=== PATIENT | female | born 1940 | race Caucasian/White ===

== ENCOUNTER → 2020-12-05 11:38 | Outpatient (BNVA) | payer MEDICARE, OTHER, SELFPAY | PROVIDERS: Referring Provider Nurse Practitioner Family; Visit Provider Specialist | DX: M17.0 Bilateral primary osteoarthritis of knee (principal) | CPT/HCPCS: 73560; 73565 ==

== ENCOUNTER 2021-02-03 09:01 | Outpatient (CLI) | payer MEDICARE, OTHER, SELFPAY ==
--- NOTE | 2021-02-03 09:30 | USCV_ITS ---
Yesica Booth Age: 80 Gender: F : 1940 Exam Date: 02/03/2021 09:44 Ordering Phys: Niecy Man MD ([email or web address]) Technologist: Shalonda Nicole Exam Location: [facility] [place] Indication: unspecified atrial fibrillation BP: 135 / 74 HR: 69 Rhythm: Sinus Technical Quality: Adequate MEASUREMENTS (Male / Female) Normal Values 2D ECHO LV Diastolic Diameter PLAX 4.5 cm 4.2 - 5.9 / 3.9 - 5.3 cm LV Systolic Diameter PLAX 2.8 cm LV Chamber Size 4.3 cm IVS Diastolic Thickness 1.4 cm 0.6 - 1.0 / 0.6 - 0.9 cm IVS Systolic Thickness 1.8 cm LVPW Diastolic Thickness 1.7 cm 0.6 - 1.0 / 0.6 - 0.9 cm LVPW Systolic Thickness 2.0 cm RV Chamber Size 3.7 cm LVOT Diameter 2.1 cm LV Ejection Fraction 2D Teich 67.7 % LV Ejection Fraction MOD 2C 30.8 % LV Ejection Fraction 2C AL 29.0 % LA Diameter 4.4 cm LA Width 3.0 cm LA Height 4.5 cm RA Width 4.1 cm RA Height 5.2 cm Aorta at Sinotubular Diameter 3.1 cm M-MODE LV Diastolic Diameter MM 5.1 cm 4.2 - 5.9 / 3.9 - 5.3 cm LV Systolic Diameter MM 3.9 cm LV Ejection Fraction MM Teich 47.7 % IVS Diastolic Thickness MM 1.2 cm 0.6 - 1.0 / 0.6 - 0.9 cm IVS Systolic Thickness MM 1.5 cm LVPW Diastolic Thickness MM 1.3 cm 0.6 - 1.0 / 0.6 - 0.9 cm LVPW Systolic Thickness MM 1.3 cm RV Diastolic Diameter MM 2.8 cm Aortic Annulus Diameter 2.8 cm LA Ao Ratio MM 1.9 MV E Point Septal Separation 0.7 cm DOPPLER AV Peak Velocity 267.3 cm/s LVOT Peak Velocity 79.0 cm/s AV Area Cont Eq vti 0.9 cm squared AV Area Cont Eq pk 1.0 cm squared MV Area PHT 5.0 cm squared Mitral E to A Ratio 0.8 MV E' Velocity 64.5 cm/s Mitral E to MV E' Ratio 19.8 Mitral E to LV E' Lateral Ratio 21.6 Mitral E to LV E' Septal Ratio 18.6 TR Peak Velocity 329.9 cm/s TR Peak Gradient 43.5 mmHg TR Mean Velocity 225.3 cm/s TR Mean Gradient 23.7 mmHg TR Velocity Time Integral 92.0 cm TV Peak E Velocity 69.0 cm/s Right Atrial Pressure 3.0 mmHg Pulmonary Artery Systolic Pressu 46.5 mmHg PV Peak Velocity 99.0 cm/s RV Acceleration Time 0.2 s RV Ejection Time 0.4 s RV AcT/ET 0.4 FINDINGS Left Ventricle Normal left ventricular cavity size and systolic function. Increased left ventricular wall thickness. Moderate left ventricular hypertrophy. Left ventricular ejection fraction is estimated at 55 %. Grade II diastolic dysfunction, moderately elevated filling pressures. Abnormal septal motion consistent with conduction abnormality. Right Ventricle Normal right ventricular size and systolic function. Right ventricular systolic pressure 47 mmHg. Right Atrium Normal right atrial size. Left Atrium Mildly increased left atrial size. Mitral Valve Moderate mitral annular calcification. Mildly thickened mitral valve. No mitral valve stenosis. Trace mitral valve regurgitation. Aortic Valve Aortic valve not well visualized. Thickened and calcified aortic valve. Probably mild aortic valve stenosis, peak velocity 2.5 m/s, peak gradient 25 mmHg, mean gradient 17.3 mmHg, DAVID 0.93 cm squared. No aortic valve regurgitation. Tricuspid Valve Structurally normal tricuspid valve. No tricuspid valve stenosis. Trace tricuspid valve regurgitation. Pulmonic Valve Pulmonic valve not well visualized. Trace pulmonary valve regurgitation. Pericardium No pericardial effusion. Aorta Normal size aortic root and proximal ascending aorta. Normal- sized inferior vena cava with normal respiratory variation. CONCLUSIONS 1. Normal left ventricular cavity size and systolic function. Increased left ventricular wall thickness. Moderate left ventricular hypertrophy. Left ventricular ejection fraction is estimated at 55 %. Grade II diastolic dysfunction, moderately elevated filling pressures. 2. Normal right ventricular size and systolic function. 3. Moderate pulmonary hypertension with pulmonary pressure estimated at 47 mmHg. 4. Probably mild aortic valve stenosis, peak velocity 2.5 m/s, peak gradient 25 mmHg, mean gradient 17.3 mmHg, DAVID 0.93 cm squared. 5. No prior similar studies to compare. Niecy Man MD (Electronically Signed) Final Date: 06 February 2021 13:13 S
== END 2021-02-03 09:02 | disposition home or self-care (01) ==
LOC: US 09:04
PROVIDERS: PCP Nurse Practitioner Family; Visit Provider Internal Medicine Cardiovascular Disease
DX: I48.91 Unspecified atrial fibrillation (principal); Z86.73 Personal history of transient ischemic attack (TIA), and cerebral infarction without residual deficits; I44.7 Left bundle-branch block, unspecified; I27.20 Pulmonary hypertension, unspecified
CPT/HCPCS: 93306

== ENCOUNTER → 2021-05-10 15:28 | Outpatient (BNVA) | payer MEDICARE, SELFPAY | PROVIDERS: PCP Nurse Practitioner Family; Visit Provider Specialist | DX: M16.11 Unilateral primary osteoarthritis, right hip (principal); R10.30 Lower abdominal pain, unspecified; R93.7 Abnormal findings on diagnostic imaging of other parts of musculoskeletal system | CPT/HCPCS: 73502 ==

== ENCOUNTER 2021-06-15 15:35 | Outpatient (CLI) | payer MEDICARE, SELFPAY ==
--- NOTE | 2021-06-15 16:00 | CT_ITS ---
WS: [id number] NONCONTRAST CT OF THE RIGHT HIP TECHNIQUE: Noncontrast CT right hip with coronal and sagittal reformatted images. CLINICAL INFORMATION: M25.551 - Pain in right hip COMPARISON: None. DLP: 676.[address] scans at [facility] use at least one of these dose optimization techniques: automated e xposure control; mA and/or kV adjustment per patient size (includes targeted exams where dose is matc hed to clinical indication); or iterative reconstruction. FINDINGS: Advanced osteoarthritis right hip with joint space narrowing and cgps-ah-quau articulation. Hypertrop hic osteophytosis about the acetabulum and femoral neck. Subchondral cystic change involving the femo ral head and adjacent acetabulum. No avascular necrosis. No acute fractures. Hypertrophic changes abo ut the greater trochanter. Vascular calcification. CT/CT hip RT wo con* [id number] IMPRESSION: 1. Advanced osteoarthritis right hip with bkun-ae-aloi joint space narrowing. 2. Subchondral cystic change involving the femoral head and acetabulum. Osteop hytosis about the femoral head and neck. Hypertrophic spurring about the acetab ulum. 3. Osteopenia. No acute fractures. 4. Vascular calcification.
== END 2021-06-15 15:36 | disposition home or self-care (01) ==
PROVIDERS: PCP Nurse Practitioner Family; Visit Provider Specialist
DX: M85.88 Other specified disorders of bone density and structure, other site (principal); M16.11 Unilateral primary osteoarthritis, right hip
CPT/HCPCS: 73700

== ENCOUNTER → 2021-12-14 14:10 | Outpatient (BNVA) | payer MEDICARE, SELFPAY | PROVIDERS: PCP Nurse Practitioner Family; Visit Provider Internal Medicine Cardiovascular Disease | DX: I48.91 Unspecified atrial fibrillation (principal); I10 Essential (primary) hypertension; I45.4 Nonspecific intraventricular block; I35.0 Nonrheumatic aortic (valve) stenosis; E78.5 Hyperlipidemia, unspecified; Z86.73 Personal history of transient ischemic attack (TIA), and cerebral infarction without residual deficits; Z79.01 Long term (current) use of anticoagulants | CPT/HCPCS: 99214 ==

== ENCOUNTER 2022-01-26 14:22 | Outpatient (CLI) | payer MEDICARE, SELFPAY ==
--- NOTE | 2022-01-26 14:34 | MR_ITS ---
WS: [id number] MRI BRAIN WITH HIGH-RESOLUTION IMAGING THROUGH THE INTERNAL AUDITORY CANALS WITHOUT AND WITH CONTRAST HISTORY: SENSORINEURAL HEARING Loss, bilateral COMPARISON: None available. TECHNIQUE: Multiplanar, multisequence imaging is performed through the brain. Additional 3 mm imaging performed in multiple planes through the internal auditory canal. Postcontrast imaging with 10 ml's of MultiHance. No acute intracranial hemorrhage, midline shift, edema or mass effect. Mild atrophy and moderate small vessel ischemic changes. Large remote posterior RIGHT parietal infarc t with encephalomalacia and adjacent gliosis. No acute hemorrhage. No diffusion-weighted abnormality. Ventricles and extra-axial spaces are normal. No inferior displacement of cerebellar tonsils. Clivus and pituitary gland are normal. Internal and external auditory canals: Unremarkable. Cranial nerves VII and VIII complexes: Unremarkable. No enhancement or mass. Cerebellopontine angles: Normal. Paranasal sinuses: Normal. Mastoid air cells: Normal. Calvarium and scalp: Hyperostosis frontalis interna. Distal vertebral and basilar arteries are intact. Small caliber supraclinoid carotid arteries and mid dle cerebral arteries with moderate atherosclerotic disease. M1 segments are incompletely visualized and this is probably due to atherosclerotic plaque. Dural venous sinuses are negative. MR/MR iac's wo/w con* [id number] IMPRESSION: 1. No mass or abnormal enhancement along the internal auditory canals or cereb ellopontine angles. 2. Large remote posterior RIGHT parietal infarct with gliosis and encephalomal acia. 3. Moderate small vessel ischemic disease and mild atrophy. 4. Small caliber and irregular middle cerebral arteries. Bilateral M1 segment moderate atherosclerosis.
[2022-01-26] MEDS: gadobenate dimeglumine 20 mL vial IV (16:21)
== END 2022-01-26 14:23 | disposition home or self-care (01) ==
LOC: RAD 14:24
PROVIDERS: PCP Family Medicine; Visit Provider Specialist
DX: H90.3 Sensorineural hearing loss, bilateral (principal)
CPT/HCPCS: 70553

== ENCOUNTER → 2022-02-27 13:31 | Outpatient (BNVA) | payer MEDICARE, SELFPAY | PROVIDERS: PCP Family Medicine; Visit Provider Family Medicine | DX: R41.3 Other amnesia (principal); M85.80 Other specified disorders of bone density and structure, unspecified site | CPT/HCPCS: 80053; 82306; 82607; 84443; 85025 ==

== ENCOUNTER → 2022-09-18 15:52 | Outpatient (BNVA) | payer MEDICARE, SELFPAY | PROVIDERS: PCP Family Medicine; Visit Provider Family Medicine | DX: I48.91 Unspecified atrial fibrillation (principal); I10 Essential (primary) hypertension; E78.5 Hyperlipidemia, unspecified; R41.3 Other amnesia | CPT/HCPCS: 80053; 80061; 84443; 85025 ==

== ENCOUNTER → 2023-02-05 15:11 | Outpatient (BNVA) | payer MEDICARE, SELFPAY | PROVIDERS: PCP Family Medicine; Visit Provider Family Medicine | DX: M79.10 Myalgia, unspecified site (principal) | CPT/HCPCS: 80053; 82306; 83735; 85025 ==

== ENCOUNTER 2023-03-01 10:44 | Outpatient (CLI) | payer MEDICARE, SELFPAY ==
--- NOTE | 2023-03-01 10:53 | XR_ITS ---
WS: [id number] Right hip, AP and frog-leg views, 03/01/2023 Clinical Data: right hip pain Comparison: Pelvis and right hip, 05/10/2021 Findings: There is severe osteoarthritic change of the right hip with narrowing, sclerosis, cyst formation and loss of normal spherical shape of the right femoral head. There are no fractures or dislocations. The right SI joint and pubic symphysis are normal. The soft t issues are unremarkable. Impression: Severe osteoarthritis of the right hip. Tonnis classification: grade 3: large cysts in femoral head/acetabulum or joint space obliteration/se jaison narrowing or severe femoral head deformity vs AVN
== END 2023-03-01 10:45 | disposition home or self-care (01) ==
LOC: RAD 10:47
PROVIDERS: PCP Family Medicine; Visit Provider Family Medicine
DX: M16.11 Unilateral primary osteoarthritis, right hip (principal)
CPT/HCPCS: 73502

== ENCOUNTER → 2023-04-03 16:20 | Outpatient (BNVA) | payer MEDICARE, SELFPAY | PROVIDERS: PCP Family Medicine; Visit Provider Specialist | DX: M54.31 Sciatica, right side (principal); M16.0 Bilateral primary osteoarthritis of hip | CPT/HCPCS: 73502; 99214 ==

== ENCOUNTER 2023-06-26 11:54 | Outpatient (CLI) | payer MEDICARE, SELFPAY ==
--- NOTE | 2023-06-26 12:00 | USCV_ITS ---
Yesica Booth Age: 82 Gender: F : 1940 Exam Date: 06/26/2023 12:09 Ordering Phys: Jessica Esteves MD Technologist: JARRETT Exam Location: [facility] [place] Indication: LLE PAIN AND SWELLING HISTORY: Lower extremity swelling. Lower extremity pain. PROCEDURES: Venous duplex imaging was performed in only the left lower extremity. The following venous structures were evaluated: common femoral vein, profunda vein, proximal portion of the greater saphenous vein, superficial femoral vein, and the popliteal vein. In addition, the posterior tibial and peroneal trunk were evaluated. Serial compression, augmentation maneuvers, and spectral Doppler flow evaluation were performed. FINDINGS: No evidence of DVT seen in any vessel visualized at this time. Examination was technically limited due to body habitus. Left PTV and Pernoneal veins not seen well due to large body habitus and swelling CONCLUSIONS No evidence of left lower extremity DVT. Technically difficult study Sukumar Edourad MD (Electronically Signed) Final Date: 26 June 2023 14:29 S
== END 2023-06-26 11:55 | disposition home or self-care (01) ==
LOC: RAD 11:55
PROVIDERS: PCP Family Medicine; Visit Provider Family Medicine
DX: M79.89 Other specified soft tissue disorders (principal)
CPT/HCPCS: 93971

== ENCOUNTER 2023-07-24 11:22 | Outpatient (RCR) | payer MEDICARE, SELFPAY | END 2023-07-24 23:59 | disposition home or self-care (01) | LOC: SPT 11:22 | PROVIDERS: PCP Family Medicine; Visit Provider Family Medicine | DX: I89.0 Lymphedema, not elsewhere classified (principal) | CPT/HCPCS: 97140; 97161 ==

== ENCOUNTER 2023-07-25 06:00 | Outpatient (RCR) | payer MEDICARE, SELFPAY | END 2023-08-22 23:59 | disposition home or self-care (01) | LOC: SPT 06:00 | PROVIDERS: PCP Family Medicine; Visit Provider Family Medicine | DX: I89.0 Lymphedema, not elsewhere classified (principal) | CPT/HCPCS: 97140 ==

== ENCOUNTER 2023-08-23 06:00 | Outpatient (RCR) | payer MEDICARE, SELFPAY | END 2023-08-30 23:59 | disposition home or self-care (01) | LOC: SPT 06:00 | PROVIDERS: PCP Family Medicine; Visit Provider Family Medicine | DX: I89.0 Lymphedema, not elsewhere classified (principal) | CPT/HCPCS: 97140 ==

== ENCOUNTER 2023-09-25 06:00 | Outpatient (RCR) | payer MEDICARE, SELFPAY | END 2023-10-15 23:59 | disposition home or self-care (01) | LOC: SPT 06:00 | PROVIDERS: Visit Provider Family Medicine | DX: I89.0 Lymphedema, not elsewhere classified (principal) | CPT/HCPCS: 97161 ==

== ENCOUNTER 2023-11-05 06:00 | Outpatient (RCR) | payer MEDICARE, SELFPAY | END 2023-11-22 23:59 | disposition home or self-care (01) | LOC: SPT 06:00 | PROVIDERS: Visit Provider Family Medicine | DX: I89.0 Lymphedema, not elsewhere classified (principal) | CPT/HCPCS: 97140; 97161 ==

== ENCOUNTER → 2023-11-21 14:08 | Outpatient (BNVA) | payer MEDICARE, SELFPAY | PROVIDERS: Referring Provider Student in an Organized Health Care Education/Training Program; Visit Provider Internal Medicine Cardiovascular Disease | DX: I48.20 Chronic atrial fibrillation, unspecified (principal); Z79.01 Long term (current) use of anticoagulants; I35.0 Nonrheumatic aortic (valve) stenosis; E78.5 Hyperlipidemia, unspecified; I10 Essential (primary) hypertension; I27.20 Pulmonary hypertension, unspecified; I89.0 Lymphedema, not elsewhere classified | CPT/HCPCS: 99214 ==

== ENCOUNTER 2023-11-23 06:00 | Outpatient (RCR) | payer MEDICARE, SELFPAY | END 2023-11-25 23:59 | disposition home or self-care (01) | LOC: SPT 06:00 | PROVIDERS: Visit Provider Family Medicine | DX: I89.0 Lymphedema, not elsewhere classified (principal) | CPT/HCPCS: 97530 ==

== ENCOUNTER 2024-05-06 15:32 | Outpatient (RCR) | payer MEDICARE, SELFPAY | END 2024-05-23 23:59 | disposition home or self-care (01) | LOC: SPT 15:32 | PROVIDERS: PCP Family Medicine; Visit Provider Family Medicine | DX: I89.0 Lymphedema, not elsewhere classified (principal) | CPT/HCPCS: 97140; 97161 ==

== ENCOUNTER 2024-05-24 06:00 | Outpatient (RCR) | payer MEDICARE, SELFPAY | END 2024-06-23 23:59 | disposition home or self-care (01) | LOC: SPT 06:00 | PROVIDERS: PCP Family Medicine; Visit Provider Family Medicine | DX: I89.0 Lymphedema, not elsewhere classified (principal) | CPT/HCPCS: 97140 ==

== ENCOUNTER 2024-06-24 07:44 | Emergency (ER) | payer MEDICARE, SELFPAY ==
[2024-06-24 07:48] VITALS: PULSE 48; RESP 18; TEMP 35.8; O2SAT 96
[2024-06-24 07:54] VITALS: BP 186/94
[2024-06-24 08:25] LABS: Basophils % 0.4 %; Eosinophils # 0.1 10^3/uL (0.0-0.8); Eosinophils % 1.2 %; Hematocrit 45.4 % (36-47); Lymphocytes # 1.4 10^3/uL (0.8-4.8); Lymphocytes % 14.8 %; Mean Corpuscular HGB Conc 31.3 g/dL (30-55); Mean Corpuscular Hemoglobin 29.7 pg (27-33); Monocytes # 0.7 10^3/uL (0.2-0.9); Monocytes % 7.9 %; Neutrophils # 7.01 10^3/uL (1.8-7.7); Neutrophils % 75.3 %; Nucleated Red Blood Cells % 0 %; Platelet Count 288 10^3/cmm (157-399); Red Blood Count 4.78 10^6/uL (3.85-5.65); White Blood Count 9.32 10^3/uL (3.29-11.43)
--- NOTE | 2024-06-24 08:30 | ED_ITS ---
HPI - Fall 2 General: Chief Complaint: Fall Stated Complaint: Fall Time Seen by Provider: 06/24/24 07:49 History of Present Illness: 83-year-old female with severe chronic l ymphedema. She has some chronic hip and knee pain as well. She lives with her daughter who provides the majority of her care. She was trying to get off of the toilet today as he started to fall the daughter was able to catch her and essentially slide her to the floor. She denies any specific injury. Typically she ambulates with a walker the walker does not fit inside the bathroom so she is not able to use the assistance there. The daughter provides most of her care but feels like they have gotten to a point where she can no longer provide the care. EMS was called to assist to get her up again. They had considered going to the senior care and began the process but then put on hold because the patient had some reservations. The daughter feels at this point they do not have many other options left. Associated symptoms-after fall: Denies abdominal pain, chest pain or neck pain Related Data Home Medications Medication Instructions Recorded Confirmed acetaminophen 500 mg capsule 1,000 mg PO Q6H PRN Pain 12/05/20 06/24/24 multivitamin 1 tab PO DAILY 12/05/20 06/24/24 aliskiren 300 mg tablet (Tekturna) 300 mg PO DAILY 06/24/24 06/24/24 carvedilol 25 mg tablet 25 mg PO BID 06/24/24 06/24/24 escitalopram oxalate 5 mg tablet 5 mg PO DAILY 06/24/24 06/24/24 indapamide 2.5 mg tablet 2.5 mg PO DAILY 06/24/24 06/24/24 meloxicam 7.5 mg tablet 7.5 mg PO DAILY PRN Pain 06/24/24 06/24/24 nifedipine 30 mg tablet,extended 30 mg PO DAILY 06/24/24 06/24/24 release 24 hr Previous Rx's Medication Instructions Recorded atorvastatin 20 mg tablet 20 mg PO DAILY #90 tabs 03/01/23 apixaban 5 mg tablet (Eliquis) 5 mg PO BID #180 tabs 04/09/24 Allergies Allergy/AdvReac Type Severity Reaction Status Date / Time No Known Allergies Allergy Verified 04/20/24 14:56 Review of Systems 2 Const: Denies: fever(s) or chills Card: Denies: chest pain Resp: Denies: dyspnea GI: Denies: abdominal pain : Denies: dysuria, urinary frequency or urinary urgency Musc: Denies: neck pain or back pain Skin/Breast: Denies: rash PFSH ED 2 PFSH: Medical History Aortic stenosis, mild Unsteady gait BPPV (benign paroxysmal positional vertigo) Pulmonary hypertension History of stroke posterior R parietal infarct Osteopenia Left bundle branch block HTN (hypertension) Dyslipidemia Atrial fibrillation Surgical History History of hysterectomy Family History Mother Congestive heart failure (CHF) Diabetes Father Stroke Family/Other Diabetes Social History Smoking and tobacco/nicotine status: never used tobacco/nicotine Alcohol intake: never Substance/Drug Use: never Household members: other Details: lives with daughter Physical Exam 2 Const: COMMON NORMALS: no acute distress GENERAL APPEARANCE: cooperative and comfortable ORIENTATION/CONSCIOUSNESS: Yes awake, Yes oriented to person, Yes oriented to place and Yes oriented to time HENMT: COMMON NORMALS: normocephalic, atraumatic and hearing grossly normal bilaterally HEAD & SCALP: normocephalic and atraumatic Resp: COMMON NORMALS: normal respiratory effort, No retractions, No use of accessory muscles and clear to auscultation bilaterally AUSCULTATION: clear to auscultation bilaterally Cardio: COMMON NORMALS: regular rate, regular rhythm and No murmurs present (Cardio) RATE: regular rate RHYTHM: regular rhythm GI: COMMON NORMALS: Soft to palpation and No hepatosplenomegaly present A USCULTATION: Yes normoactive bowel sounds PALPATION: Yes Soft to palpation, No Tenderness to palpation present (GI), No Guarding due to palpation present (GI) and Yes No hepatosplenomegaly present Extremity: OTHER: Chronic lymphedema with wraps on the lower extremities with some signs of serous oozing from the skin on the wraps externally Neuro: SENSORIUM/ORIENTATION: Yes oriented to person, Yes oriented to place and Yes oriented to time Skin: COMMON NORMALS: no rashes or lesions noted GENERAL SKIN EXAM: no rashes or lesions noted Course 2 Vital Signs: Vital signs: Vital Signs Temperature 96.5 F L 06/24/24 07:48 Pulse Rate 50 L 06/24/24 12:10 Respiratory Rate 26 H 06/24/24 10:24 Blood Pressure 183/90 06/24/24 12:10 Pulse Oximetry 93 06/24/24 12:10 MDM - Fall Medical Decision Making Imaging and labs unremarkable. Reviewed with family. I have considered a senior care placement will be held up a bit now the daughter wishes to proceed I do not have anything that require hospital admission at this time will discharge home encouraged him to continue follow-up with senior care for admission to help with his activities of daily living. Lab Data 06/24/24 08:10 06/24/24 08:10 Radiology Impressions Pelvis X-Ray 06/24/24 08:38 IMPRESSION: No acute findings. Stable severe degenerative changes. Laboratory Results WBC 9.32 10^3/uL (3.29-11.43) 06/24/24 08:10 RBC 4.78 10^6/uL (3.85-5.65) 06/24/24 08:10 Hgb 14.20 g/dL (11.27-16.99) 06/24/24 08:10 Hct 45.4 % (36-47) 06/24/24 08:10 MCV 95.0 fl (85-98) 06/24/24 08:10 MCH 29.7 pg (27-33) 06/24/24 08:10 MCHC 31.3 g/dL (30-55) 06/24/24 08:10 RDW 16.0 % (12.1-15.1) H 06/24/24 08:10 Plt Count 288 10^3/cmm (157-399) 06/24/24 08:10 MPV 9.0 fL (7.4-10.4) 06/24/24 08:10 Neut % (Auto) 75.3 % 06/24/24 08:10 Lymph % (Auto) 14.8 % 06/24/24 08:10 Kingfisher % (Auto) 7.9 % 06/24/24 08:10 Eos % (Auto) 1.2 % 06/24/24 08:10 Baso % (Auto) 0.4 % 06/24/24 08:10 Neut # (Auto) 7.01 10^3/uL (1.8-7.7) 06/24/24 08:10 Lymph # (Auto) 1.4 10^3/uL (0.8-4.8) 06/24/24 08:10 Kingfisher # (Auto) 0.7 10^3/uL (0.2-0.9) 06/24/24 08:10 Eos # (Auto) 0.1 10^3/uL (0.0-0.8) 06/24/24 08:10 Baso # (Auto) 0.0 10^3/uL (0.0-0.1) 06/24/24 08:10 Nucleated RBC % (auto) 0 % 06/24/24 08:10 Nucleated RBCs # 0.0 /100WBC 06/24/24 08:10 Sodium 138 mmol/L (136-145) 06/24/24 08:10 Potassium 4.9 mmol/L (3.5-5.1) 06/24/24 08:10 Chloride 101 mmol/L (98-107) 06/24/24 08:10 Carbon Dioxide 26 mmol/L (22-29) 06/24/24 08:10 Anion Gap 15.9 (5-19) 06/24/24 08:10 BUN 15 mg/dL (8-23) 06/24/24 08:10 Creatinine 0.8 mg/dL (0.5-0.9) 06/24/24 08:10 GFR Calculation Not Reportable 06/24/24 08:10 Glucose 117 mg/dL (65-115) H 06/24/24 08:10 Calculated Osmolality 288 mOsm/kg (285-295) 06/24/24 08:10 Calcium 8.8 mg/dL (8.5-10.5) 06/24/24 08:10 Total Bilirubin 1.3 mg/dL (0.15-1.2) H 06/24/24 08:10 AST 15 U/L (0-32) 06/24/24 08:10 ALT < 5 U/L (0-33) 06/24/24 08:10 Alkaline Phosphatase 88 U/L (35-105) 06/24/24 08:10 Total Protein 6.8 g/dL (6.6-8.7) 06/24/24 08:10 Albumin 3.2 g/dL (3.5-5.2) L 06/24/24 08:10 Globulin 3.6 g/dL (1.3-4.6) 06/24/24 08:10 All radiology interpretation(s) finalized by discharge Discharge Plan Discharge Patient Disposition: Home Clinical Impression: Primary osteoarthritis of left hip, Primary osteoarthritis of right hip, History of stroke, Neuropathy, Lymphedema, Fall Condition: Stable Prescriptions: No Action acetaminophen 500 mg capsule 1,000 mg PO Q6H PRN (Reason: Pain) multivitamin Tablet 1 tab PO DAILY atorvastatin 20 mg tablet 20 mg PO DAILY Qty: 90 1RF Eliquis 5 mg tablet 5 mg PO BID Qty: 180 2RF nifedipine 30 mg tablet extended release 24hr 30 mg PO DAILY carvedilol 25 mg tablet 25 mg PO BID indapamide 2.5 mg tablet 2.5 mg PO DAILY meloxicam 7.5 mg tablet 7.5 mg PO DAILY PRN (Reason: Pain) escitalopram oxalate 5 mg tablet 5 mg PO DAILY aliskiren [Tekturna] 300 mg tablet 300 mg PO DAILY Discharge Orders: Discharge ED (Routine); Ordered 06/24/24 Ordered By: Zuhair Kasper Referrals: Jessica Esteves MD [Primary Care Provider] - Discharge Diet: Usual diet Discharge Activity: Increase activity as tolerated Patient Instructions: Opioid Safety, Pain Management Activity Restrictions/Additional Instructions: Thank you for choosing [facility] for your healthcare needs today. It is very important that you follow up as instructed or that you return to the Emergency Department should you have concerns or if your condition changes or worsens in any way. You are seen today after a fall. X-ray of your pelvis did not show any fractures of the hips or pelvis. Your other labs were unremarkable. I agree with your family's assessment that you likely will need more help to manage her daily activities. Recommend continuing the process with the senior care for admission. Coding Level of Care Code ED Ad Compositor for Zulma Parekh
--- NOTE | 2024-06-24 08:38 | XRR_ITS ---
PROCEDURE INFORMATION: Exam: XR Pelvis Exam date and time: 06/24/2024 8:42 AM Age: 83 years old Clinical indication: Injury or trauma; Fall; Blunt trauma (contusions or hematomas); Bilateral; Pelvic region TECHNIQUE: Imaging protocol: Radiologic exam of the pelvis. Views: 1 or 2 view. COMPARISON: CR XR hip RT 2-3V wo/w pel* [id number] 04/03/2023 4:21 PM FINDINGS: Bones/joints: Stable severe degenerative changes both hips and lower lumbar spine. No acute fracture. No dislocation. Soft tissues: Unremarkable. XR/XR pelvis 1-2V* [id number] IMPRESSION: No acute findings. Stable severe degenerative changes.
[2024-06-24 08:40] LABS: Alanine Aminotransferase < 5 U/L (0-33); Albumin Level 3.2 g/dL (3.5-5.2); Alkaline Phosphatase 88 U/L (35-105); Anion Gap 15.9 (5-19); Aspartate Amino Transferase 15 U/L (0-32); Blood Urea Nitrogen 15 mg/dL (8-23); Calcium 8.8 mg/dL (8.5-10.5); Carbon Dioxide 26 mmol/L (22-29); Chloride 101 mmol/L (98-107); Creatinine Clr Calc Pharmacy 62.3891; Globulin 3.6 g/dL (1.3-4.6); Glucose 117 mg/dL (65-115); Osmolality Calculated 288 mOsm/kg (285-295); Potassium 4.9 mmol/L (3.5-5.1); Sodium 138 mmol/L (136-145); Total Bilirubin 1.3 mg/dL (0.15-1.2); Total Protein 6.8 g/dL (6.6-8.7)
[2024-06-24 10:24] VITALS: BP 193/88; PULSE 56; RESP 26; O2SAT 92
--- NOTE | 2024-06-24 10:48 | PC.PHAR ---
Pt states she sometimes forgets to take her medications. Fill dates on a few of the bottles indicate some truth to that.
[2024-06-24 12:10] VITALS: BP 183/90; PULSE 50; O2SAT 93
--- NOTE | 2024-06-24 12:44 | PC.NURSE ---
report given to [facility]; IV removed, catheter intact.
== END 2024-06-24 12:43 | disposition home or self-care (01) ==
PROVIDERS: Emergency Provider Family Medicine; PCP Family Medicine
DX: M16.0 Bilateral primary osteoarthritis of hip (principal); Z86.73 Personal history of transient ischemic attack (TIA), and cerebral infarction without residual deficits; G62.9 Polyneuropathy, unspecified; I89.0 Lymphedema, not elsewhere classified; W19.XXXA Unspecified fall, initial encounter; Z79.01 Long term (current) use of anticoagulants; E78.5 Hyperlipidemia, unspecified; I10 Essential (primary) hypertension
CPT/HCPCS: 36415; 72170; 80053; 85025; 99284

== ENCOUNTER 2024-07-04 21:35 | Inpatient (IN) | payer MEDICARE, SELFPAY ==
[2024-07-04 21:38] VITALS: BP 161/71; PULSE 62; RESP 18; TEMP 36.5; O2SAT 93; BMI 32.3
[2024-07-04 21:47] VITALS: BP 148/66; PULSE 53
--- NOTE | 2024-07-04 22:19 | CTR_ITS ---
PROCEDURE INFORMATION: Exam: CT Head Without Contrast Exam date and time: 07/04/2024 10:56 PM Age: 83 years old Clinical indication: Altered mental status/memory loss; Patient HX: EMS arrival from custodial for general weakness. Patient very lethargic upon exam. History of RT side CVA. ; Additional info: AMS TECHNIQUE: Imaging protocol: Computed tomography of the head without contrast. Radiation optimization: All CT scans at this facility use at least one of these dose optimization techniques: automated exposure control; mA and/or kV adjustment per patient size (includes targeted exams where dose is matched to clinical indication); or iterative reconstruction. COMPARISON: MR viramontes's wo/w con* [id number] 01/26/2022 3:24 PM RADIATION DOSE METRICS: Total DLP (mGy-cm): 2351.48 FINDINGS: Brain: No evidence for acute intracranial hemorrhage, mass effect, or acute infarct by CT. Stable moderate-sized chronic infarct in the right temporal parietal area. Mild generalized cerebral and cerebellar atrophy and mild presumed chronic small-vessel ischemic changes in the cerebral white matter. Cerebral ventricles: Mild prominence of the lateral and 3rd ventricles compatible with atrophy. Paranasal sinuses: Visualized sinuses are unremarkable. No fluid levels. Mastoid air cells: Visualized mastoid air cells are well aerated. Bones: Hyperostosis frontalis interna noted. Soft tissues: Unremarkable. Vasculature: Calcific changes in both carotid siphons and in both intracranial vertebral arteries. CT/CT head wo con* [id number] IMPRESSION: 1. No acute intracranial abnormality. 2. Stable moderate-sized chronic infarct in the right temporoparietal area with volume loss.
--- NOTE | 2024-07-04 22:20 | XRR_ITS ---
PROCEDURE INFORMATION: Exam: XR Chest Exam date and time: 07/04/2024 10:41 PM Age: 83 years old Clinical indication: Patient HX: SOB; Cough; AMS; Lethargy; Weakness TECHNIQUE: Imaging protocol: Radiologic exam of the chest. Views: 1 view. COMPARISON: No relevant prior studies available. FINDINGS: Lungs: Bilateral lower lobe compressive atelectasis, rnezb-[id number]-xkqz-left. Pleural spaces: Moderate bilateral pleural effusions, [id number]-sizsjbp-jdjr-left. Heart/Mediastinum: Unremarkable. No cardiomegaly. Vasculature: Aortic calcification. Bones/joints: Unremarkable. XR/XR chest 1V portable [id number] IMPRESSION: 1. Moderate bilateral pleural effusions, eyydi-lvncuvw-lslk-left. Cannot exclude a superimposed infectious process. 2. Bilateral lower lobe compressive atelectasis, gjsge-hwbodun-cdhg-left.
[2024-07-04] MEDS: ipratropium-albuterol 3 mL Neb INHALATION (22:29)
[2024-07-04 22:32] VITALS: PULSE 55; RESP 20; O2SAT 94
[2024-07-04 22:45] LABS: Basophils % 0.1 %; Eosinophils # 0.1 10^3/uL (0.0-0.8); Hematocrit 43.1 % (36-47); Lymphocytes # 0.4 10^3/uL (0.8-4.8); Lymphocytes % 4.7 %; Mean Corpuscular HGB Conc 29.9 g/dL (30-55); Mean Corpuscular Hemoglobin 30.2 pg (27-33); Mean Corpuscular Volume 100.9 fl (85-98); Mean Platelet Volume 9.7 fL (7.4-10.4); Monocytes # 0.7 10^3/uL (0.2-0.9); Monocytes % 7.7 %; Neutrophils # 7.99 10^3/uL (1.8-7.7); Neutrophils % 86.2 %; Nucleated Red Blood Cells % 0 %; Platelet Count 178 10^3/cmm (157-399); Red Blood Count 4.27 10^6/uL (3.85-5.65); Red Cell Distribution Width 15.8 % (12.1-15.1); White Blood Count 9.27 10^3/uL (3.29-11.43)
--- NOTE | 2024-07-04 22:46 | ED_ITS ---
HPI - Weakness 2 General: Chief complaint: Weakness Stated complaint: weakness Time Seen by Provider: 07/04/24 21:40 History of Present Illness: 83-year-old female who has been in the [facility] home about a week now. Family complains of progressive weakness over the last several days. Her heart rate has been low. She has been having trouble eating, and talking. She seems lethargic and sleepy to the family. No focal deficits have been noted. She does seem to have trouble breathing. She has not coughed. No fever. PFSH ED 2 PFSH: Medical History Aortic stenosis, mild Unsteady gait BPPV (benign paroxysmal positional vertigo) Pulmonary hypertension History of stroke posterior R parietal infarct Osteopenia Left bundle branch block HTN (hypertension) Dyslipidemia Atrial fibrillation Surgical History History of hysterectomy Family History Mother Congestive heart failure (CHF) Diabetes Father Stroke Family/Other Diabetes Social History Smoking and tobacco/nicotine status: never used tobacco/nicotine Alcohol intake: never Substance/Drug Use: never Household members: other Details: lives with daughter Physical Exam 2 Const: COMMON NORMALS: no acute distress GENERAL APPEARANCE: lethargic, ill appearing and frail appearing ORIENTATION/CONSCIOUSNESS: Yes lethargic HENMT: COMMON NORMALS: normocephalic, atraumatic and Normal external nose present HEAD & SCALP: normocephalic and atraumatic FACE & SINUS: normal facial exam and face symmetric NOSE: Normal external nose present Eye: COMMON NORMALS: Equal, round and reactive pupils present and EOMs intact bilaterally PUPIL: Yes Equal, round and reactive pupils present Neck/C-Spine: GENERAL: Yes trachea midline Chest: CHEST: Yes Symmetrical chest wall rise Resp: EFFORT & INSPECTION: Yes tachypneic and Yes labored AUSCULTATION: d iminished lung sounds Cardio: RATE: bradycardic RHYTHM: abnormal rhythm irregularly irregular GI: COMMON NORMALS: Normal to inspection, nondistended, normoactive bowel sounds present Extremity: NARRATIVE EXTREMITY EXAM: Significant chronic edema upper and lower extremities Neuro: LUIS ARMANDO COMA SCALE: document GCS findings [place] coma scale eye opening: Spontaneous Luis Armando coma scale verbal response: Orientated [place] coma scale motor response: Obey commands Luis Armando coma scale total score: 15 S ENSORIUM/ORIENTATION: Yes lethargic SENSORY EXAM: Yes extremities (intact) Psych: COMMON NORMALS: speech normal SPEECH: Yes normal speech Skin: COMMON NORMALS: no rashes or lesions noted GENERAL SKIN EXAM: no rashes or lesions noted Course 2 Vital Signs: Vital signs: Vital Signs Temperature 97.9 F 07/05/24 02:20 Pulse Rate 50 L 07/05/24 03:24 Respiratory Rate 15 07/05/24 02:35 Blood Pressure 143/70 07/05/24 02:30 Pulse Oximetry 98 07/05/24 02:35 Oxygen Delivery Me thod BiPAP 07/05/24 02:20 Oxygen Flow Rate 50 07/05/24 00:49 Fraction of Inspir ed Oxygen 45 07/05/24 02:20 MDM - Weakness Medical Decision Making The patient is bradycardic on exam. She is hypoxic on oxygen. She is lethargic. Examination neurologically is nonfocal. Movements are symmetrical. Her CBC is normal. Her creatinine is 1. Blood gas shows a pH of 7.28 with a pCO2 of 72 and a pO2 of 65 on 4 L of oxygen. CRP is only 20. Lactic acid is 1.1. Baseline troponin is only 21. CK is 15. BNP is nearly 13,000. Chest x- ray shows florid pulmonary edema. Head CT and chest CT are pending. On further examination, her vulva are quite swollen, excoriated, and bloody. She has open sores on her rump as well. Gavin is placed, and she is given 80 mg of Lasix IV for diuresis. Patient is still groggy despite BiPAP treatment. Hospitalist was notified of the admission, and is talk to the family. They are considering making the patient DNR/DNI status patient. We will hold off on intubation for now because of this. She will go to the ICU. Lab Data 07/05/24 02:54 07/04/24 22:[address] 07/04/24 22:19 IMPRESSION: 1. No acute intracranial abnormality. 2. Stable moderate-sized chronic infarct in the right temporoparietal area with volume loss. Chest X-Ray 07/04/24 22:20 IMPRESSION: 1. Moderate bilateral pleural effusions, [id number]-meik-left. Cannot exclude a superimposed infectious process. 2. Bilateral lower lobe compressive atelectasis, [id number]-bccw-left. Chest CT 07/04/24 22:47 IMPRESSION: 1. Large right and moderate left-sided pleural effusions. 2. Hypodense right thyroid lobe nodule. Recommend dedicated thyroid ultrasound for further evaluation if not previously performed. 3. Enlargement of the pulmonary trunk likely secondary to pulmonary hypertension. COMMENTS: Consistent with the [employer] [employer]'s Incidental Findings Committee white paper (J Am Anat Radiol 2015): In patients aged 35 years and older with an incidental thyroid nodule equal to or greater than 1.[address], MRI or extrathyroidal US, further evaluation with dedicated thyroid US is recommended for patients with normal life expectancy and without comorbidities. For smaller nodules without suspicious features, no further evaluation or follow up is recommended. Laboratory Results WBC 9.27 10^3/uL (3.29-11.43) 07/04/24 22:36 RBC 4.27 10^6/uL (3.85-5.65) 07/04/24 22:36 Hgb 12.90 g/dL (11.27-16.99) 07/04/24 22:36 Hct 43.1 % (36-47) 07/04/24 22:36 MCV 100.9 fl (85-98) H 07/04/24 22:36 MCH 30.2 pg (27-33) 07/04/24 22:36 MCHC 29.9 g/dL (30-55) L 07/04/24 22:36 RDW 15.8 % (12.1-15.1) H 07/04/24 22:36 Plt Count 178 10^3/cmm (157-399) 07/04/24 22:36 MPV 9.7 fL (7.4-10.4) 07/04/24 22:36 Neut % (Auto) 86.2 % 07/04/24 22:36 Lymph % (Auto) 4.7 % 07/04/24 22:36 [place] % (Auto) 7.7 % 07/04/24 22:36 Eos % (Auto) 1.0 % 07/04/24 22:36 Baso % (Auto) 0.1 % 07/04/24 22:36 Neut # (Auto) 7.99 10^3/uL (1.8-7.7) H 07/04/24 22:36 Lymph # (Auto) 0.4 10^3/uL (0.8-4.8) L 07/04/24 22:36 [place] # (Auto) 0.7 10^3/uL (0.2-0.9) 07/04/24 22:36 Eos # (Auto) 0.1 10^3/uL (0.0-0.8) 07/04/24 22:36 Baso # (Auto) 0.0 10^3/uL (0.0-0.1) 07/04/24 22:36 Nucleated RBC % (auto) 0 % 07/04/24:36 Nucleated RBCs # 0.0 /100WBC 07/04/24 22:36 PT 24.70 SECONDS (12.1-14.9) H 07/04/24 22:36 INR 2.09 (0.8-1.2) H 07/04/24 22:36 Specimen Type Arterial 07/04/24 22:19 Sample Site Brachial, right 07/04/24 22:19 ABG pH 7.28 (7.35-7.45) L 07/04/24 22:19 ABG pCO2 72.3 mmHg (35-45) H* 07/04/24 22:19 ABG pO2 65.7 mmHg (80.0-100.0) L 07/04/24 22:19 ABG PO2/FiO2 Ratio 182 07/04/24 22:19 ABG HCO3 33.7 mmol/L (22-26) H 07/04/24 22:19 ABG Base Excess 4.6 mmol/L (-2.0-2.0) H 07/04/24 22:19 Fer Test Pos 07/04/24 22:19 Hematocrit 40.4 % (37-47) 07/04/24 22:19 Hgb O2 Saturation 89.9 % (95-100) L 07/04/24 22:19 Carboxyhemoglobin 1.2 %THgb (0.4-20.1) 07/04/24 22:19 Methemoglobin 1.0 % (0.4-1.5) 07/04/24 22:19 Total Hemoglobin 13.2 g/dL (12-16) 07/04/24 22:19 O2 Delivery Device Nc 07/04/24 22:19 O2 Liters/Min 4.0 % 07/04/24 22:19 FiO2 36.0 % 07/04/24 22:19 Real Estate Transaction Coordinator ID Bd 07/04/24 22:19 Sodium 142 mmol/L (136-145) 07/04/24 22:36 Potassium 3.6 mmol/L (3.5-5.1) 07/04/24 22:36 Chloride 106 mmol/L (98-107) 07/04/24 22:36 Carbon Dioxide 31 mmol/L (22-29) H 07/04/24 22:36 Anion Gap 8.6 (5-19) 07/04/24 22:36 BUN 36 mg/dL (8-23) H 07/04/24 22:36 Creatinine 1.0 mg/dL (0.5-0.9) H 07/04/24 22:36 GFR Calculation Not Reportable 07/04/24 22:36 Glucose 102 mg/dL (65-115) 07/04/24 22:36 Calculated Osmolality 303 mOsm/kg (285-295) H 07/04/24 22:36 Lactic Acid 1.1 mmol/L (0.5-2.2) 07/04/24 22:36 Calcium 8.1 mg/dL (8.5-10.5) L 07/04/24 22:36 Total Bilirubin 0.8 mg/dL (0.15-1.2) 07/04/24 22:36 AST 12 U/L (0-32) 07/04/24 22:36 ALT 9 U/L (0-33) 07/04/24 22:36 Alkaline Phosphatase 103 U/L (35-105) 07/04/24 22:36 Ammonia 50 umol/L (11-51) 07/04/24 22:36 Creatine Kinase 15 U/L (26-192) L 07/04/24 22:36 Troponin T Baseline 21 ng/L (0-10) H 07/04/24 22:36 C-Reactive Protein 21.2 mg/L (0.0-4.9) H 07/04/24 22:36 NT-Pro-B Natriuret Pep 59555 pg/mL (0-450) H 07/04/24 22:36 Total Protein 5.7 g/dL (6.6-8.7) L 07/04/24 22:36 Albumin 2.7 g/dL (3.5-5.2) L 07/04/24 22:36 Globulin 3.0 g/dL (1.3-4.6) 07/04/24 22:36 TSH 2.49 uIU/mL (0.27-4.20) 07/04/24 22:36 Urine Color Dark yellow (Yellow) A 07/04/24 23: Urine Appearance Clear (CLEAR) 07/04/24: Urine pH 5.5 (5-7) 07/04/24: Ur Specific [place] 1.020 (1.005-1.030) 07/04/24 23: Urine Protein Trace (Negative) A 07/04/24: Urine Glucose (UA) Negative (Normal) 07/04/24: Urine Ketones Negative (Negative) 07/04/24 23: Urine Blood Non-haemolysed trace (Negative) 07/04/24 23: Urine Nitrate Negative (Negative) 07/04/24: Urine Bilirubin Negative (Negative) 07/04/24: Urine Urobilinogen 1.0 mg/dL (Negative) 07/04/24 23: Ur Leukocyte Esterase Negative (Negative) 07/04/24 23: Urine RBC 3-5 /hpf (0-2) 07/04/24: Urine WBC 0-5 /hpf (0-5) 07/04/24 23: Ur Squamous Epith Cells 10-15 /hpf (0-5) H 07/04/24 23: Amorphous Sediment Not Reportable 07/04/24: Urine Bacteria 3+ /hpf (NONE) H 07/04/24 23: Hyaline Casts 7.42 /lpf 07/04/24 23:31 Adenovirus (PCR) Not detected (NOT DETECT) 07/04/24 21:44 C. pneumoniae DNA (PCR) Not detected (NOT DETECT) 07/04/24 21:44 Coronavirus 229E (PCR) Not detected (NOT DETECT) 07/04/24 21:44 Human Metapneumovir PCR Not detected (NOT DETECT) 07/04/24 21:44 Influenza A (H1) PCR Not detected (NOT DETECT) 07/04/24 21:44 Influ A (H1/09) PCR Not detected (NOT DETECT) 07/04/24 21:44 Influenza A (H3) PCR Not detected (NOT DETECT) 07/04/24 21:44 Influenza Type A (PCR) Not detected (NOT DETECT) 07/04/24 21:44 Influenza Type B (PCR) Not detected (NOT DETECT) 07/04/24 21:44 M. pneumoniae (PCR) Not detected (NOT DETECT) 07/04/24 21:44 Parainfluenza 1 (PCR) Not detected (NOT DETECT) 07/04/24 21:44 Parainfluenza 2 (PCR) Not detected (NOT DETECT) 07/04/24 21:44 Parainfluenza 3 (PCR) Not detected (NOT DETECT) 07/04/24 21:44 Parainfluenza 4 (PCR) Not detected (NOT DETECT) 07/04/24 21:44 RSV Type A (PCR) Not detected (NOT DETECT) 07/04/24 21:44 RSV Type B (PCR) Not detected (NOT DETECT) 07/04/24 21:44 Entero/Rhino (PCR) Not detected (NOT DETECT) 07/04/24 21:44 SARS-CoV-2 (PCR) Not detected (NOT DETECT) 07/04/24 21:44 All radiology interpretation(s) finalized by discharge Discharge Plan Discharge Patient Disposition: Admitted As Inpatient Admit Provider: Tona Zuniga Clinical Impression: Acute exacerbation of CHF (congestive heart failure), Acute respiratory failure with hypoxia and hypercapnia Condition: Critical Coding Level of Care Code ED Healthcare Manager for g Fwd Related Data Home Medications Medication Instructions Recorded Confirmed acetaminophen 500 mg capsule 1,000 mg PO Q6H PRN Pain 12/05/20 06/24/24 multivitamin 1 tab PO DAILY 12/05/20 06/24/24 aliskiren 300 mg tablet (Tekturna) 300 mg PO DAILY 06/24/24 06/24/24 carvedilol 25 mg tablet 25 mg PO BID 06/24/24 07/05/24 escitalopram oxalate 5 mg tablet 5 mg PO DAILY 06/24/24 07/05/24 indapamide 2.5 mg tablet 2.5 mg PO DAILY 06/24/24 07/05/24 meloxicam 7.5 mg tablet 7.5 mg PO DAILY PRN Pain 06/24/24 06/24/24 nifedipine 30 mg tablet,extended 30 mg PO DAILY 06/24/24 06/24/24 release 24 hr apixaban 5 mg tablet (Eliquis) 5 mg PO BID 07/05/24 07/05/24 multivitamin 1 full tab PO DAILY 07/05/24 07/05/24 Previous Rx's Medication Instructions Recorded atorvastatin 20 mg tablet 20 mg PO DAILY #90 tabs 03/01/23 apixaban 5 mg tablet (Eliquis) 5 mg PO BID #180 tabs 04/09/24 Allergies Allergy/AdvReac Type Severity Reaction Status Date / Time No Known Allergies Allergy Verified 04/20/24 14:56
--- NOTE | 2024-07-04 22:47 | CTR_ITS ---
PROCEDURE INFORMATION: Exam: CT Chest With Contrast; Diagnostic Exam date and time: 07/04/2024 11:01 PM Age: 83 years old Clinical indication: Shortness of breath and other: Pleural effusion on cxr; Patient HX: PT SOB. Pleural effusion on cxr. History of aortic stenosis with afib. TECHNIQUE: Imaging protocol: Diagnostic computed tomography of the chest with contrast. Radiation optimization: All CT scans at this facility use at least one of these dose optimization techniques: automated exposure control; mA and/or kV adjustment per patient size (includes targeted exams where dose is matched to clinical indication); or iterative reconstruction. Contrast material: OMNI 350; Contrast volume: 80 ml; Contrast route: INTRAVENOUS (IV); COMPARISON: CR (CHEST, ) 07/04/2024 10:41 PM RADIATION DOSE METRICS: Total DLP (mGy-cm): 1046.97 FINDINGS: Thyroid: Heterogenous enlarged thyroid. 2.2 x 1.7 cm hypodense right thyroid lobe nodule (series 4, image 2). Lungs: Complete collapse of the bilateral lower lobes. Partial collapse of the right middle lobe and bilateral upper lobe compressive atelectasis. Pleural spaces: Large right and moderate left-sided pleural effusions. No pneumothorax. Heart: Right ventricular and biatrial enlargement. Coronary arteries: Moderate coronary artery calcifications. Lymph nodes: Unremarkable. No enlarged lymph nodes. Vasculature: Enlargement of the pulmonary trunk measuring 3.5 cm. 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 Soft tissues: Unremarkable. CT/CT chest w con* [id number] IMPRESSION: 1. Large right and moderate left-sided pleural effusions. 2. Hypodense right thyroid lobe nodule. Recommend dedicated thyroid ultrasound for further evaluation if not previously performed. 3. Enlargement of the pulmonary trunk likely secondary to pulmonary hypertension. COMMENTS: Consistent with the [employer] [employer]'s Incidental Findings Committee white paper (J Am Anat Radiol 2015): In patients aged 35 years and older with an incidental thyroid nodule equal to or greater than 1.[address], MRI or extrathyroidal US, further evaluation with dedicated thyroid US is recommended for patients with normal life expectancy and without comorbidities. For smaller nodules without suspicious features, no further evaluation or follow up is recommended.
[2024-07-04 22:48] LABS: ABG PH Result 7.28 (7.35-7.45); Arterial Blood Gas Hematocrit 40.4 % (37-47); Base Excess ABG 4.6 mmol/L (-2.0-2.0); Blood Gas Allen Test Pos; Blood Gas Operator Identificat BD; Blood Gas Sample Site Brachial, right; Blood Gas Sample Type Arterial; Carboxyhemoglobin 1.2 %THgb (0.4-20.1); HCO3 ABG 33.7 mmol/L (22-26); HGB O2 Sat 89.9 % (95-100); Oxygen Device NC; PO2 ABG 65.7 mmHg (80.0-100.0); PO2 FiO2 Ratio Arterial Blood 182; Total Hemoglobin 13.2 g/dL (12-16)
--- NOTE | 2024-07-04 22:48 | ECG_ITS ---
[employer] Test Date: 2024-07-04 Pat Name: Yesica Booth Department: Room: Gender: Female Male Model: : 1940 Requested By: Bernardino Byers Order Number: [id number] Jose Antonio MD: Cherelle Oden M.D. Measurements Intervals [place] Rate: 52 P: 0 AL: 0 QRS: 181 QRSD: 166 T: 14 QT: 519 QTc: 483 Interpretive Statements ATRIAL FIBRILLATION WITH SLOW VENTRICULAR RESPONSE RIGHT AXIS DEVIATION [QRS AXIS > 100] INTRAVENTRICULAR CONDUCTION DELAY [130+ ms QRS DURATION] No previous ECG available for comparison Electronically Signed On 07-08-2024 00:00:55 MATERIAL COORDINATOR by Cherelle Oden M.D. [email or web address]
[2024-07-04 22:49] LABS: ABG PCO2 72.3 mmHg (35-45)
[2024-07-04 22:52] VITALS: BP 151/64; PULSE 52; O2SAT 93
[2024-07-04 22:59] LABS: INR 2.09 (0.8-1.2)
[2024-07-04] MEDS: iohexol 350 mg/mL 500 mL Btl (per mL) IV (23:00)
[2024-07-04 23:03] LABS: Ammonia 50 umol/L (11-51); Lactic Sepsis W/Reflex 1.1 mmol/L (0.5-2.2)
[2024-07-04 23:06] LABS: Troponin(5th) Baseline 21 ng/L (0-10)
[2024-07-04 23:16] LABS: Alanine Aminotransferase 9 U/L (0-33); Albumin Level 2.7 g/dL (3.5-5.2); Alkaline Phosphatase 103 U/L (35-105); Anion Gap 8.6 (5-19); Aspartate Amino Transferase 12 U/L (0-32); Blood Urea Nitrogen 36 mg/dL (8-23); C Reactive Protein 21.2 mg/L (0.0-4.9); Calcium 8.1 mg/dL (8.5-10.5); Carbon Dioxide 31 mmol/L (22-29); Chloride 106 mmol/L (98-107); Creatine Phosphokinase 15 U/L (26-192); Creatinine Clr Calc Pharmacy 47.5122; Glucose 102 mg/dL (65-115); NT Pro B Type Natriuretic Pept 12855 pg/mL (0-450); Osmolality Calculated 303 mOsm/kg (285-295); Potassium 3.6 mmol/L (3.5-5.1); Sodium 142 mmol/L (136-145); Total Bilirubin 0.8 mg/dL (0.15-1.2); Total Protein 5.7 g/dL (6.6-8.7)
[2024-07-04 23:18] VITALS: PULSE 50; RESP 18; O2SAT 96
[2024-07-04 23:32] VITALS: BP 148/68; PULSE 51; RESP 16; O2SAT 98
[2024-07-04] MEDS: FUROsemide 10 mg/mL SDV 10mL 80 MG IVP (23:34)
[2024-07-04 23:39] LABS: Bilirubin Urine Negative (Negative); Blood Urine Non-haemolysed trace (Negative); Glucose Urine UA Negative (Normal); Ketones Urine Negative (Negative); Leukocyte Esterase Urine Negative (Negative); Nitrate Urine Negative (Negative); Protein Urine Trace (Negative); Urine Appearance Clear (CLEAR); Urine Color Dark Yellow (Yellow); pH Urine 5.5 (5-7)
[2024-07-04 23:44] LABS: Hyaline Casts Urine 7.42 /lpf; Universal Test for UA Present (0); WBC Urine 0-5 /hpf (0-5)
--- NOTE | 2024-07-04 23:55 | P.HP_ITS ---
Providers/Chief Complaint 2 Admitting Physician: Tona Zuniga MD Primary Care Provider: Jessica Esteves MD Chief Complaint: weakness History of Present Illness Yesica Booth is a 83 year old female with history of previous CVA, diastolic CHF, lymphedema, A-fib, chronic anticoagulation, came in from custodial with generalized weakness, fatigue, confusion and worsening of shortness of breath. 2 daughters are at the bedside stating that at home their mother was getting gradually weaker, and last few weeks she has had tendency to fall, she was evaluated in the ER there was no fractures identified no sign of stroke, she was discharged home, daughters are struggling to take care of her, she was placed in a custodial 1 week ago last . There is no report of chest pain, fever diarrhea or vomiting. Patient has not eaten well in last few days because she is very lethargic and fatigued, nursing staff was struggling to assist her to ambulate hence started giving her bedpan, she cannot even use a walker now. CT chest consistent with bilateral pleural effusion, CT head consistent with previous stroke related changes UA consistent with bacteriuria Patient not showing sign of sepsis, afebrile, drowsy falling back to sleep while on BiPAP I had detailed discussion with the family who was at the bedside patient was listed as full code in her custodial records, I did tell the family that at this point we normally intubate because she is not able to protect her airway because of hypercapnia and ideally she should be intubated and stay in ICU, she is showing sinus pauses with underlying A-fib on telemetry with concern for junctional rhythm, blood pressure is stable, patient is verbally redirectable, sign of fluid overload Both daughter decided against full CODE STATUS and wanted to change to DNR/DNI Patient has received 60 mg IV Lasix, AV leatha blocking agents discontinued, since she cannot take Eliquis Holding off on anticoagulating agent for thoracentesis I have added ceftriaxone for UTI When asked patient how she is feeling she did not endorse any chest pain, back pain As per the nursing staff patient does have sacral ulcer, On clinical exam she does have skin discoloration with lymphedema Review of Systems 2 General: Reports: ROS unobtainable due to medical condition Medications/Allergies Home Medications Medication Instructions Recorded Confirmed Last Taken Type acetaminophen 500 mg capsule 1,000 mg PO Q6H PRN Pain 12/05/20 06/24/24 Unknown History multivitamin 1 tab PO DAILY 12/05/20 06/24/24 Unknown History atorvastatin 20 mg tablet 20 mg PO DAILY #90 tabs 03/01/23 06/24/24 Unknown Rx apixaban 5 mg tablet (Eliquis) 5 mg PO BID #180 tabs 04/09/24 06/24/24 06/23/24 Rx aliskiren 300 mg tablet (Tekturna) 300 mg PO DAILY 06/24/24 06/24/24 06/23/24 History carvedilol 25 mg tablet 25 mg PO BID 06/24/24 06/24/24 06/23/24 History escitalopram oxalate 5 mg tablet 5 mg PO DAILY 06/24/24 06/24/24 06/23/24 History indapamide 2.5 mg tablet 2.5 mg PO DAILY 06/24/24 06/24/24 06/23/24 History meloxicam 7.5 mg tablet 7.5 mg PO DAILY PRN Pain 06/24/24 06/24/24 Unknown History nifedipine 30 mg tablet,extended 30 mg PO DAILY 06/24/24 06/24/24 06/23/24 History release 24 hr Allergies Allergy/AdvReac Type Severity Reaction Status Date / Time No Known Allergies Allergy Verified 04/20/24 14:56 PFSH Acute 2 PFSH: Medical History Aortic stenosis, mild Unsteady gait BPPV (benign paroxysmal positional vertigo) Pulmonary hypertension History of stroke posterior R parietal infarct Osteopenia Left bundle branch block HTN (hypertension) Dyslipidemia Atrial fibrillation Surgical History History of hysterectomy Family History Mother Congestive heart failure (CHF) Diabetes Father Stroke Family/Other Diabetes Social History Smoking and tobacco/nicotine status: never used tobacco/nicotine Alcohol intake: never Substance/Drug Use: never Household members: other Details: lives with daughter Vitals/I&O/Wt Last Vital Signs Temp 97.7 F 07/04/24 21:38 Pulse 51 L 07/04/24 23:32 Resp 16 07/04/24 23:32 BP 148/68 07/04/24 23:32 Pulse Ox 98 07/04/24 23:32 O2 Del Method BiPAP 07/04/24 23:32 O2 Flow Rate 4 07/04/24 22:32 FiO2 50 07/04/24 23:32 07/04/24 07/04/24 07/05/24 14:59 22:59 06:59 Intake Total 0 / 0 Balance 0 / 0 Weight last 48 hrs Weight 90.718 kg Physical Exam 2 Narrative: Very somnolent and drowsy Anasarca Currently on BiPAP Patient was able to shake hand with the right hand, she was able to lift her left arm on verbal commands She is verbally redirectable Oriented to herself only AO x 1, she was able to tell me that she is in the hospital Distended abdomen Lower extremity swelling with skin excoriation, wearing compression stockings Sacral area ulcer stage II Gavin catheter draining concentrated urine Dry mucous membranes, cracked lips Urinary Catheter Management: Gavin: Cath Placed During This Visit: yes Urinary Catheter Date of Insertion: 07/04/24 Urinary Catheter Time of Insertion: 23:30 Data 07/04/24 22:36 07/04/24 22:36 Micro: Microbiology 07/04/24 22:38 Blood Culture - Preliminary Blood SPECIMEN COLLECTED 07/04/24 22:36 Blood Culture - Preliminary Blood SPECIMEN COLLECTED A&P Assessment and plan (1) Pulmonary hypertension: (2) Aortic valve stenosis: Qualifiers: Cardiac valve disease etiology: nonrheumatic Qualified Code(s): I35.0 - Nonrheumatic aortic (valve) stenosis (3) Atrial fibrillation: Qualifiers: Atrial fibrillation type: unspecified chronic Qualified Code(s): I48.20 - Chronic atrial fibrillation, unspecified (4) IVCD (intraventricular conduction defect): (5) Primary osteoarthritis of left knee: (6) Primary osteoarthritis of left hip: (7) History of stroke: (8) Poor short term memory: (9) Unsteady gait: (10) Lymphedema: (11) Acute exacerbation of CHF (congestive heart failure): (12) Acute respiratory failure with hypoxia and hypercapnia: (13) Pleural effusion: Plan Acute diastolic CHF exacerbation No signs of ischemic changes on EKG Previous echo was done 3 years ago Will repeat echo Patient not complaining active chest pain Trend troponin with serial EKG Start aggressive diuretic regimen Underlying pulmonary hypertension Acute hypoxic hypercapnic respiratory failure Patient has hypercapnic encephalopathy Anasarca Bilateral pleural effusion Discontinue Eliquis in anticipation of thoracentesis Continue BiPAP regimen No signs of consolidation on CT scan chest Afebrile no sign of sepsis A-fib with slow ventricular sponsor Hold Eliquis in anticipation of thoracentesis Hold AV leatha blocking agent Monitor QTc interval Monitor for junctional rhythm Currently hemodynamically stable Candidacy for pacemaker is questionable Hold Coreg Skin excoriation lymphedema Stage II sacral ulcer Patient will need wound care, frequent change in position Continue compression wraps Gradual decline as per the family Patient has had multiple falls at home, arthritis of hip Previous history of stroke Has not been able to use a walker and now depending on nursing staff at the custodial Gavin catheter placed As per the family couple of weeks ago she was able to use walker to some extent, she was able to communicate with the family, able to eat on her own At this point we are trying to reverse reversible causes such as hypercapnia with BiPAP, thoracentesis for pleural effusion,. Bacteriuria, abnormal UA: Continue ceftriaxone for now Request urine culture Hypokalemia: Potassium replenished, check mag level Detailed goals of care discussion at the time of admission with 2 daughters at the bedside: They have decided against full CODE STATUS and wants to pursue DNR/DNI status DVT prophylaxis: Will use Lovenox therapeutic regimen 1 dose right now and then hold in anticipation of thoracentesis on Saturday Please resume anticoagulating agent in the form of Eliquis or therapeutic Lovenox 4 hours after thoracentesis Attestations 2 Medical Necessity Statement*: More than 2 midnights anticipated Diagnoses Pulmonary hypertension I27.20 Nonrheumatic aortic valve stenosis I35.0 Cardiac valve disease etiology: nonrheumatic Chronic atrial fibrillation I48.20 Atrial fibrillation type: unspecified chronic IVCD (intraventricular conduction defect) I45.4 Primary osteoarthritis of left knee M17.12 Primary osteoarthritis of left hip M16.12 History of stroke Z86.73 Poor short term memory R41.3 Unsteady gait R26.81 Lymphedema I89.0 Acute exacerbation of CHF (congestive heart failure) I50.9 Acute respiratory failure with hypoxia and hypercapnia J96.01; J96.02 Pleural effusion J90
[2024-07-04 23:57] LABS: Add Urine Culture? No; Bacteria Urine 3+ /hpf
[2024-07-05] VITALS (73 sets, daily range): BP systolic 123–189; BP diastolic 51–93; PULSE 0–72; RESP 14–24; TEMP 35.8–36.6; O2SAT 91–100; BMI 37.9; BMI 37.0
[2024-07-05 00:08] LABS: Thyroid Stimulating Hormone 2.49 uIU/mL (0.27-4.20)
--- NOTE | 2024-07-05 00:20 | ECG_ITS ---
[facility] Test Date: 2024-07-05 Pat Name: Yesica Booth Department: Room: ICU11 Gender: Female Spool Tender: : 1940 Requested By: Bernardino Byers Order Number: [id number] Jose Antonio MD: MARIEL MCLAUGHLIN Measurements Intervals [place] Rate: 45 P: 0 ID: 0 QRS: -40 QRSD: 164 T: 106 QT: 534 QTc: 464 Interpretive Statements ATRIAL FIBRILLATION WITH SLOW VENTRICULAR RESPONSE LEFT AXIS DEVIATION [QRS AXIS < -30] LEFT BUNDLE BRANCH BLOCK [120+ ms QRS DURATION, 80+ ms Q/S IN V1/V2, 85+ ms R IN I/aVL/V5/V6] LATERAL MYOCARDIAL INFARCTION , OF INDETERMINATE AGE [40+ ms Q WAVE AND/OR ST/T ABNORMALITY IN I/aVL/V5/V6] Compared to ECG 07/04/2024 22:48:12 Left-axis deviation now present Left bundle-branch block now present Myocardial infarct finding now present Right-axis deviation no longer present Intraventricular conduction delay no longer present Electronically Signed On 07-13-2024 23:32:55 CREDIT OPERATIONS SPECIALIST by MARIEL MCLAUGHLIN [id number]
--- NOTE | 2024-07-05 00:48 | USCV_ITS ---
Yesica Booth Age: 83 Gender: F : 1940 Exam Date: 07/05/2024 13:16 Ordering Phys: Tona Zuniga MD Technologist: Barry House Exam Location: [facility] [place] Indication: chf BP: 155 / 61 HR: 48 Rhythm: Sinus Technical Quality: suboptimal MEASUREMENTS (Male / Female) Normal Values 2D ECHO LV Diastolic Diameter PLAX 4.3 cm 4.2 - 5.9 / 3.9 - 5.3 cm IVS Diastolic Thickness 1.4 cm 0.6 - 1.0 / 0.6 - 0.9 cm IVS Systolic Thickness 1.8 cm LVPW Diastolic Thickness 1.6 cm 0.6 - 1.0 / 0.6 - 0.9 cm LVPW Systolic Thickness 2.0 cm LVOT Diameter 2.1 cm LV Ejection Fraction 2D Teich 44.5 % LV Ejection Fraction MOD 4C 62.6 % LV Ejection Fraction MOD 2C 51.8 % LV Ejection Fraction 2C AL 52.5 % LA Diameter 4.8 cm RA Systolic Volume 4C AL 71.3 ml RA Systolic Volume 4C MOD 70.0 ml LA Sys Volume AL 67.5 cm cubed LA Sys Volume Index AL 30.0 cm cubed/m squared Aorta at Sinotubular Diameter 2.3 cm IVC Diameter 2.1 cm M-MODE LA Ao Ratio MM 2.5 AV Cusp Separation MM 1.2 cm DOPPLER AV Peak Velocity 327.0 cm/s LVOT Peak Velocity 212.0 cm/s AV Area Cont Eq vti 2.8 cm squared AV Area Cont Eq pk 2.2 cm squared MV Peak Velocity 119.0 cm/s MV Area PHT 3.6 cm squared Mitral E to A Ratio 1.8 TV Peak Velocity 372.0 cm/s TR Peak Velocity 382.0 cm/s TR Peak Gradient 58.4 mmHg TR Mean Velocity 299.0 cm/s TR Mean Gradient 37.2 mmHg TR Velocity Time Integral 154.6 cm PV Peak Velocity 134.0 cm/s RV Ejection Time 0.3 s FINDINGS Left Ventricle Mildly increased left ventricular cavity size. Moderately decreased left ventricular systolic function. Left ventricular ejection fraction is estimated at 45 %. Global left ventricular hypokinesis. Right Ventricle The right ventricle is normal in size and function. Right Atrium Severely increased right atrial size. Left Atrium Moderately increased left atrial size. Mitral Valve Severely thickened mitral valve. Moderate mitral annular calcification. No mitral valve stenosis. Moderate mitral valve regurgitation. Aortic Valve Moderate aortic valve calcification. Mild aortic valve stenosis, mean gradient 16.7 mmHg, DAVID 2.8 cm squared.trace aortic valve regurgitation. Tricuspid Valve Thickened tricuspid valve. No tricuspid valve stenosis. Moderate tricuspid valve regurgitation. Pulmonic Valve Structurally normal pulmonic valve without significant stenosis. There is no pulmonic regurgitation. Pericardium Normal pericardium without effusion. Aorta Normal ascending aorta dimension. IVC The inferior vena cava appears normal. CONCLUSIONS Mildly increased left ventricular cavity size. Moderately decreased left ventricular systolic function. Left ventricular ejection fraction is estimated at 45 %. Global left ventricular hypokinesis. Severely increased right atrial size. Severely thickened mitral valve. Moderate mitral annular calcification. No mitral valve stenosis. Moderate mitral valve regurgitation. Moderate aortic valve calcification. Mild aortic valve stenosis, mean gradient 16.7 mmHg, DAVID 2.8 cm squared.trace aortic valve regurgitation. There is no pericardial effusion. Right atrial pressure is around 20 mm of mercury. Tona Scott MD (Electronically Signed) Final Date: 05 July 2024 18:35 S
[2024-07-05 01:17] LABS: Troponin 5 2HR 21.06 ng/L (0-10); Troponin 5 2HR Delta 0.06 ABS# (0-10)
[2024-07-05 01:43] LABS: Adenovirus Not Detected (NOT DETECT); Chlamydia Pneumoniae Not Detected (NOT DETECT); Coronavirus 229E,HKU1,NL63,OC4 Not Detected (NOT DETECT); Human Metapneumovirus Not Detected (NOT DETECT); Human Rhinovirus/Enterovirus Not Detected (NOT DETECT); Influenza A Not Detected (NOT DETECT); Influenza A H1 Not Detected (NOT DETECT); Influenza A H1-2009 Not Detected (NOT DETECT); Influenza A H3 Not Detected (NOT DETECT); Influenza B Not Detected (NOT DETECT); Mycoplasma Pneumoniae Not Detected (NOT DETECT); Parainfluenza Virus Type 1 Not Detected (NOT DETECT); Parainfluenza Virus Type 2 Not Detected (NOT DETECT); Parainfluenza Virus Type 3 Not Detected (NOT DETECT); Parainfluenza Virus Type 4 Not Detected (NOT DETECT); Respiratory Syncytial Virus A Not Detected (NOT DETECT); Respiratory Syncytial Virus B Not Detected (NOT DETECT); SARS-COV-2 Not Detected (NOT DETECT)
[2024-07-05] MEDS: cefTRIAXone 1,000 mg SDV 1000 MG IVP (01:54)
[2024-07-05] MEDS: enoxaparin 100 mg/mL Syringe 90 MG SUBCUT ×2 (01:54→12:02)
[2024-07-05 02:03] LABS: ABG PH Result 7.31 (7.35-7.45); Arterial Blood Gas Hematocrit 41.9 % (37-47); Base Excess ABG 5.7 mmol/L (-2.0-2.0); Blood Gas Allen Test Pos; Blood Gas Operator Identificat JDB; Blood Gas Sample Site Radial, right; Blood Gas Sample Type Arterial; Blood Gas Tidal Volume 0.55; HCO3 ABG 34.2 mmol/L (22-26); Oxygen Device BIPAP; PO2 FiO2 Ratio Arterial Blood 214
[2024-07-05 02:06] LABS: ABG PCO2 67.8 mmHg (35-45)
[2024-07-05] MEDS: lidocaine 1% 5 ML in potassium chloride premix 100 ML 26.25 ML IV ×2 (02:06→23:13)
[2024-07-05 03:08] LABS: Basophils % 0.1 %; Eosinophils # 0.1 10^3/uL (0.0-0.8); Eosinophils % 1.2 %; Hematocrit 43.9 % (36-47); Lymphocytes # 0.6 10^3/uL (0.8-4.8); Lymphocytes % 6.7 %; Mean Corpuscular HGB Conc 29.8 g/dL (30-55); Mean Corpuscular Hemoglobin 29.7 pg (27-33); Mean Corpuscular Volume 99.5 fl (85-98); Mean Platelet Volume 9.6 fL (7.4-10.4); Monocytes # 0.7 10^3/uL (0.2-0.9); Monocytes % 7.9 %; Neutrophils # 7.23 10^3/uL (1.8-7.7); Neutrophils % 83.5 %; Nucleated Red Blood Cells % 0 %; Platelet Count 183 10^3/cmm (157-399); Red Blood Count 4.41 10^6/uL (3.85-5.65); Red Cell Distribution Width 15.9 % (12.1-15.1); White Blood Count 8.65 10^3/uL (3.29-11.43)
--- NOTE | 2024-07-05 03:20 | PC.NURSE ---
Glucose Patient's blood glucose decreased from 102 to [address] Zuniga contacted and order received for 1 mg glucagon IM once.
[2024-07-05 03:43] LABS: Troponin 5 6HR 23.28 ng/L (0-10); Troponin 5 6HR Delta 2.28 ng/L (0-12)
[2024-07-05 03:45] LABS: Blood Urea Nitrogen 35 mg/dL (8-23); Calcium 8.6 mg/dL (8.5-10.5); Carbon Dioxide 32 mmol/L (22-29); Chloride 105 mmol/L (98-107); Creatinine Clr Calc Pharmacy 51.6857; Glucose 90 mg/dL (65-115); Magnesium 2.2 mg/dL (1.7-2.3); Osmolality Calculated 304 mOsm/kg (285-295); Phosphorus 2.4 mg/dL (2.5-4.5); Sodium 143 mmol/L (136-145)
[2024-07-05] MEDS: glucagon 1 mg/mL KIT 1 mL IM ×2 (03:47→21:08)
[2024-07-05 03:48] LABS: Anion Gap 9.7 (5-19); Potassium 3.7 mmol/L (3.5-5.1)
[2024-07-05 03:52] LABS: Procalcitonin 0.11 ng/mL (0-0.5)
--- NOTE | 2024-07-05 04:20 | ECG_ITS ---
[facility]24[facility]05 Pat Name: Yesica Booth Department: Room: ICU11 Gender: Female Inseam Leveler: : 1940 Requested By: Bernardino Byers Order Number: [id number] Jose Antonio MD: MARIEL MCLAUGHLIN Measurements Intervals [place] Rate: 46 P: 0 ME: 0 QRS: 252 QRSD: 166 T: 73 QT: 523 QTc: 461 Interpretive Statements ATRIAL FIBRILLATION WITH SLOW VENTRICULAR RESPONSE RIGHT AXIS DEVIATION [QRS AXIS > 100] INTRAVENTRICULAR CONDUCTION DELAY [130+ ms QRS DURATION] Compared to ECG 07/05/2024 01:50:34 Right-axis deviation now present Intraventricular conduction delay now present Left-axis deviation no longer present Left bundle-branch block no longer present Myocardial infarct finding no longer present Electronically Signed On 07-13-2024 23:32:44 CNC CUTTING OPERATOR by MARIEL MCLAUGHLIN [id number]
--- NOTE | 2024-07-05 05:30 | PC.NURSE ---
HR Patient's heart rate maintaining in the low 40s to low 50s with intermittent rates in the 30s. Dr. Zuniga notified. Furthermore, patient noted to have several pauses in heart rhythm with the longest pause lasting 3.[address] Zuniga notified; no new orders received.
[2024-07-05] MEDS: lanolin oint 7 gm 1 APPLIC TOPICAL ×2 (05:32→20:17)
[2024-07-05 06:08] LABS: Glucose Point of Care 82 mg/dL (70-110)
[2024-07-05 07:27] LABS: Glucose Point of Care 82 mg/dL (70-110)
[2024-07-05 08:43] LABS: Glucose Point of Care 89 mg/dL (70-110)
[2024-07-05] MEDS: pantoprazole 40 mg SDV IVP ×2 (09:10→17:02)
[2024-07-05] MEDS: FUROsemide 10 mg/mL SDV 10mL 60 MG IVP ×2 (10:27→22:23)
[2024-07-05 10:32] LABS: Glucose Point of Care 76 mg/dL (70-110)
[2024-07-05 11:28] LABS: ABG PH Result 7.38 (7.35-7.45); Alveolar-Arterial Oxygen Gradi 12.9 mmHg (5-10); Arterial Blood Gas Hematocrit 43.6 % (37-47); Base Excess ABG 8.7 mmol/L (-2.0-2.0); Blood Gas Allen Test Pos; Blood Gas Operator Identificat GD; Blood Gas Sample Site Radial, left; Blood Gas Sample Type Arterial; Carboxyhemoglobin 1.1 %THgb (0.4-20.1); HCO3 ABG 36.2 mmol/L (22-26); HGB O2 Sat 95.2 % (95-100); Ionized Calcium Level - ABG 1.2 mmol/L (1.1-1.4); Methemoglobin 0.9 % (0.4-1.5); Oxygen Device NC; Oxygen Saturation ABG 97.1; PO2 ABG 82.9 mmHg (80.0-100.0); PO2 FiO2 Ratio Arterial Blood 230; Potassium Level - ABG 3.7 mmol/L (3.5-5.0); Total Hemoglobin 14.2 g/dL (12-16)
--- NOTE | 2024-07-05 12:44 | PC.NURSE ---
doctor here exam pt and talked with family at length no lumbar puncture to be done family talking about thoracentisis off bipap at this time visiting with family chocked on water will given small amts of ice chips . placed on 3lnc lasix given large amts of urine out
--- NOTE | 2024-07-05 14:53 | P.PN_ITS ---
Subjective 2 Subjective: Patient is more alert this morning. She is awake. ABG has currently improved to pH 7.38/pCO2 of 61/pO2 of 82.9. Discussed patient's CT scan, bilateral large pleural effusions extensively with patient and her daughter at bedside. Patient states she is afraid and asked me to discuss the entire case with her daughter and defers all decision-making to the daughter. Medications: Reviewed: Yes Vitals/I&O/Wt Last Vital Signs Temp 96.5 F L 07/05/24 05:15 Pulse 39 L 07/05/24 14:00 Resp 17 07/05/24 14:00 BP 144/60 07/05/24 14:00 Pulse Ox 100 07/05/24 14:00 O2 Del Method BiPAP 07/05/24 05:15 O2 Flow Rate 50 07/05/24 00:49 FiO2 35 07/05/24 09:01 07/04/24 07/05/24 07/05/24 22:59 06:59 14:59 Intake Total 0 / 0 105 / 105 Output Total 2475 / 2475 Balance 0 / 0 -2370 / -2370 Weight last 48 hrs Weight 104 kg Weight 106.5 kg Weight 90.718 kg Physical Exam 2 Narrative: General: chronically ill aperaing lady, weak low voice but able to answer all questions, states being very nervous HEENT: PERRLA, pupils bilaterally equal and reactive, pallors not present Chest: reduced air entry B/L lung dyson. CVS: S1-S2 irregular, bradycardia, no murmurs, no tachycardia, no gallops, no rubs Abdomen: Soft, nontender, no organomegaly, bowel sounds present Neuro: No focal deficits, no facial deformity Urinary Catheter Management: Gavin: Cath Placed During This Visit: yes Reason for Continuing Indwelling Catheter: Accurate Measurement of Urinary Output in Critically Ill Patients Urinary Catheter Date of Insertion: 07/04/24 Urinary Catheter Time of Insertion: 23:30 Data 07/05/24 02:54 07/05/24 16:49 Micro: Microbiology 07/04/24 22:38 Blood Culture - Preliminary Blood SPECIMEN COLLECTED 07/04/24 22:36 Blood Culture - Preliminary Blood SPECIMEN COLLECTED A&P Assessment and plan (1) Pulmonary hypertension: (2) Aortic valve stenosis: Qualifiers: Cardiac valve disease etiology: nonrheumatic Qualified Code(s): I35.0 - Nonrheumatic aortic (valve) stenosis (3) Atrial fibrillation: Qualifiers: Atrial fibrillation type: unspecified chronic Qualified Code(s): I48.20 - Chronic atrial fibrillation, unspecified (4) IVCD (intraventricular conduction defect): (5) Primary osteoarthritis of left knee: (6) Primary osteoarthritis of left hip: (7) History of stroke: (8) Poor short term memory: (9) Unsteady gait: (10) Lymphedema: (11) Acute exacerbation of CHF (congestive heart failure): (12) Acute respiratory failure with hypoxia and hypercapnia: (13) Pleural effusion: Plan Acute diastolic CHF exacerbation No signs of ischemic changes on EKG Previous echo was done 3 years ago Will repeat echo Patient not complaining active chest pain Trend troponin with serial EKG Start aggressive diuretic regimen Underlying pulmonary hypertension Acute hypoxic hypercapnic respiratory failure Patient has hypercapnic encephalopathy Anasarca Bilateral pleural effusion Discontinue Eliquis in anticipation of thoracentesis Continue BiPAP regimen No signs of consolidation on CT scan chest Afebrile no sign of sepsis A-fib with slow ventricular sponsor Hold Eliquis in anticipation of thoracentesis Hold AV leatha blocking agent Monitor QTc interval Monitor for junctional rhythm Currently hemodynamically stable Candidacy for pacemaker is questionable Hold Coreg Skin excoriation lymphedema Stage II sacral ulcer Patient will need wound care, frequent change in position Continue compression wraps Gradual decline as per the family Patient has had multiple falls at home, arthritis of hip Previous history of stroke Has not been able to use a walker and now depending on nursing staff at the group home Gavin catheter placed As per the family couple of weeks ago she was able to use walker to some extent, she was able to communicate with the family, able to eat on her own At this point we are trying to reverse reversible causes such as hypercapnia with BiPAP, thoracentesis for pleural effusion,. Bacteriuria, abnormal UA: Continue ceftriaxone for now Request urine culture Hypokalemia: Potassium replenished, check mag level Detailed goals of care discussion at the time of admission with 2 daughters at the bedside: They have decided against full CODE STATUS and wants to pursue DNR/DNI status DVT prophylaxis: Will use Lovenox therapeutic regimen 1 dose right now and then hold in anticipation of thoracentesis on Saturday Please resume anticoagulating agent in the form of Eliquis or therapeutic Lovenox 4 hours after thoracentesis July 05, 2024. Overnight labs and H&P reviewed. Patient appearing to be chronically ill. Chart is reviewed extensively. In reviewing primary care physicians notes, patient has longstanding lymphedema, A-fib, she has had increasing difficulty with her mobility, was having increasing falls at home. To which family was not able to manage at home. Patient has recently transitioned into long-term group home care. She has bilateral large pleural effusions on CT of the chest. Discussed extensively with her daughter Mirella who is currently at bedside that her hypercapnic respiratory failure at this present time is most likely related to these large pleural effusions and resulting lung compression. IV diuretics alone will likely not be helpful in relieving her symptoms. Thoracentesis is recommended in this situation. We are holding Eliquis due to this reason. I tried to talk to the patient when she was awake and alert this morning if she would want to proceed with thoracentesis, however patient states that she is very nervous and to talk and we need to discuss with her daughter about all care. Mirella states that she would like to have goals of care discussion with her sister and her daughter and get back with us. Patient has been bradycardic with heart rate ranging between 35-60 for the most part today. Blood pressure is currently maintained. Mentation is currently improving. Most likely this is related to beta-blockers. We are holding carvedilol due to this reason. As needed atropine and/or dopamine diffusion to be started in case of persistent or symptomatic bradycardia. If patient starts to deteriorate, consideration for hospice versus comfort care however as things stand currently we are on scheduled to undergo thoracentesis tomorrow. Patient's daughter will let us know if anything changes after the family discussion. Continue IV ceftriaxone, continue IV diuresis with Lasix Attestations 2 Medical Necessity Statement*: thoracnetesis, bradycardia needing further monitoring, IV diuretics, IV antibiotics. Critical Care Time: The high probability of a clinically significant, sudden or life threatening deterioration of the patient's [5respiratory,cardiac, neuro] system(s) required my full and direct attention, intervention and personal management. The critical care time is as shown. This time is in addition to time spent performing any reported procedures but includes the following: [x] Data and vital sign review and interpretation [x] Patient assessment, examination and intervention [x] Documentation [x] Medication orders and management Coding Level of Care Code Critical Care >/= 30 minutes Diagnoses Pulmonary hypertension I27.20 Nonrheumatic aortic valve stenosis I35.0 Cardiac valve disease etiology: nonrheumatic Chronic atrial fibrillation I48.20 Atrial fibrillation type: unspecified chronic IVCD (intraventricular conduction defect) I45.4 Primary osteoarthritis of left knee M17.12 Primary osteoarthritis of left hip M16.12 History of stroke Z86.73 Poor short term memory R41.3 Unsteady gait R26.81 Lymphedema I89.0 Acute exacerbation of CHF (congestive heart failure) I50.9 Acute respiratory failure with hypoxia and hypercapnia J96.01; J96.02 Pleural effusion J90
[2024-07-05 15:42] LABS: Glucose Point of Care 75 mg/dL (70-110)
--- NOTE | 2024-07-05 16:09 | PC.NURSE ---
lethargic placed on bipap at this time family not here at this time
[2024-07-05 17:39] LABS: Blood Urea Nitrogen 36 mg/dL (8-23); Calcium 8.7 mg/dL (8.5-10.5); Carbon Dioxide 33 mmol/L (22-29); Chloride 102 mmol/L (98-107); Glucose 79 mg/dL (65-115); Osmolality Calculated 303 mOsm/kg (285-295); Sodium 143 mmol/L (136-145)
[2024-07-05 17:40] LABS: Anion Gap 11.7 (5-19); Potassium 3.7 mmol/L (3.5-5.1)
[2024-07-05 18:16] LABS: Glucose Point of Care 74 mg/dL (70-110)
[2024-07-05 20:31] LABS: Glucose Point of Care 72 mg/dL (70-110)
--- NOTE | 2024-07-05 21:00 | PC.NURSE ---
Glucagon Patient's blood sugar [address] Zuniga notified; order received for 1 mg glucagon IM once.
--- NOTE | 2024-07-05 21:20 | PC.NURSE ---
Physician Communication Dr. Zuniga at bedside; order received to complete bedside swallow eval with juice. While swallowing juice, patient began coughing and choking. Dr. Zuniga notified; order received for speech eval and treat.
[2024-07-05 21:37] LABS: Glucose Point of Care 84 mg/dL (70-110)
--- NOTE | 2024-07-05 22:00 | PC.NURSE ---
Glucose Recheck glucose following glucagon was 84. Dr. Zuniga notified; order received for D10 bolu- 125 ml over 10 minutes.
[2024-07-05] MEDS: dextrose 10% 125 ML 750 ML IV (22:19)
--- NOTE | 2024-07-05 22:56 | PC.NURSE ---
Lasix New order for lasix 60 mg Q24H starting now; 60 mg lasix administered previously per AUG. Dr. Zuniga contacted and verification received to not administer this first dose of the new lasix order.
[2024-07-05 23:04] LABS: Glucose Point of Care 130 mg/dL (70-110)
[2024-07-06] VITALS (88 sets, daily range): BP systolic 93–196; BP diastolic 44–91; PULSE 36–66; RESP 12–32; TEMP 36.3–36.6; O2SAT 82–100
[2024-07-06] MEDS: atropine 0.1 mg/mL Syr 10 mL 0.5 MG IVP (01:09)
--- NOTE | 2024-07-06 01:10 | PC.NURSE ---
Atropine Patient's heart rate maintaining 30-38 for several minutes with intermittent pauses lasting 2-3 seconds. Atropine administered per AUG.
[2024-07-06] MEDS: cefTRIAXone 1,000 mg SDV 1000 MG IVP (01:13)
[2024-07-06 02:36] LABS: Glucose Point of Care 90 mg/dL (70-110)
--- NOTE | 2024-07-06 05:02 | PC.NURSE ---
Hydralazine Dr. Zuniga notified of patient's elevated blood pressure; order received for 5 mg hydralazine IVP Q4H PRN for BP >180/110.
[2024-07-06 05:09] LABS: Base Excess VBG 12.5 mmol/L (-3.0-3.0); Blood Gas Operator Identificat JDB; Blood Gas Sample Site Not specified; Blood Gas Sample Type Venous; HCO3 VBG 38.8 mmol/L (24-28); Oxygen Device BIPAP; PCO2 VBG 54.8 mmHg (41-51); PO2 VBG 76.6 mmHg (25-40); Venous Blood Gas Hematocrit 43.8 % (37-47); pH VBG 7.46 (7.32-7.42)
[2024-07-06 05:10] LABS: Blood Gas Tidal Volume 0.55
[2024-07-06 06:07] LABS: Basophils % 0.2 %; Eosinophils # 0.1 10^3/uL (0.0-0.8); Hematocrit 45.2 % (36-47); Lymphocytes # 1.5 10^3/uL (0.8-4.8); Lymphocytes % 16.1 %; Mean Corpuscular HGB Conc 30.1 g/dL (30-55); Mean Corpuscular Hemoglobin 29.4 pg (27-33); Mean Corpuscular Volume 97.8 fl (85-98); Mean Platelet Volume 10.3 fL (7.4-10.4); Monocytes # 1.2 10^3/uL (0.2-0.9); Neutrophils # 6.57 10^3/uL (1.8-7.7); Neutrophils % 69.3 %; Nucleated Red Blood Cells % 0 %; Platelet Count 189 10^3/cmm (157-399); Red Blood Count 4.62 10^6/uL (3.85-5.65); Red Cell Distribution Width 15.9 % (12.1-15.1); White Blood Count 9.47 10^3/uL (3.29-11.43)
[2024-07-06 06:16] LABS: INR 1.55 (0.8-1.2)
[2024-07-06 06:23] LABS: C Reactive Protein 35.6 mg/L (0.0-4.9)
[2024-07-06 06:28] LABS: Anion Gap 8.2 (5-19); Blood Urea Nitrogen 33 mg/dL (8-23); Calcium 8.9 mg/dL (8.5-10.5); Carbon Dioxide 39 mmol/L (22-29); Chloride 101 mmol/L (98-107); Glucose 70 mg/dL (65-115); Osmolality Calculated 304 mOsm/kg (285-295); Potassium 4.2 mmol/L (3.5-5.1); Sodium 144 mmol/L (136-145)
--- NOTE | 2024-07-06 06:52 | PM.PN ---
Subjective Subjective: Patient is much more awake and alert as compared to day of admission Significant diuresis, making good urine pH compensated pCO2 improving Concern for aspiration requested speech therapy however does not have any focal deficit Patient chokes on taking liquid diet For hypoglycemia overnight glucagon and dextrose was given Potassium supplemented today normal ammonia level, lactic acid normal, troponin without significant elevation Daughters were debating whether they would opt for thoracentesis however doing thoracentesis will definitely help her breathe better Echo showing EF 45% global left ventricle hypokinesia, no active chest pain, mild aortic valve stenosis, Patient is getting bedbound, at the group home she has not been able to use a walker in last 1 week, gradually declining secondary to hip and knee arthritis In case of further worsening family was debating if they would opt for palliative care at the group home At this point she has stabilized to some extent as compared to day of admission with a helpful AVAPS P and diuresis Vitals/I&O/Wt Last Vital Signs Temp 98 F 07/05/24 20:30 Pulse 47 L 07/05/24 20:30 Resp 16 07/05/24 20:30 BP 189/60 07/05/24 20:30 Pulse Ox 97 07/05/24 20:30 O2 Del Method Nasal Cannula 07/05/24 20:30 O2 Flow Rate 50 07/05/24 00:49 FiO2 35 07/05/24 15:41 07/05/24 07/05/24 07/05/24 06:59 14:59 22:59 Intake Total 105 / 105 100 / 100 Output Total 2475 / 2475 2300 / 2300 Balance -2370 / -2370 -2200 / -2200 Weight last 48 hrs Weight 104 kg Weight 106.5 kg Weight 90.718 kg Physical Exam Narrative: Patient is answering my questions appropriately Currently on AVAPS Dry mucous membrane Signs of fluid overload Skin excoriation Lymphedema No active focal deficit Patient appears anxious No active chest pain Variable S1-S2 heart rate fluctuates between 40-60 Urinary Catheter Management: Gavin: Cath Placed During This Visit: yes Reason for Continuing Indwelling Catheter: Accurate Measurement of Urinary Output in Critically Ill Patients Urinary Catheter Date of Insertion: 07/04/24 Urinary Catheter Time of Insertion: 23:30 Data 07/06/24 04:46 07/06/24 04:46 Micro: Microbiology 07/04/24 22:38 Blood Culture - Preliminary Blood SPECIMEN COLLECTED 07/04/24 22:36 Blood Culture - Preliminary Blood SPECIMEN COLLECTED A&P Assessment and plan (1) Pulmonary hypertension: (2) Aortic valve stenosis: Qualifiers: Cardiac valve disease etiology: nonrheumatic Qualified Code(s): I35.0 - Nonrheumatic aortic (valve) stenosis (3) Atrial fibrillation: Qualifiers: Atrial fibrillation type: unspecified chronic Qualified Code(s): I48.20 - Chronic atrial fibrillation, unspecified (4) IVCD (intraventricular conduction defect): (5) Primary osteoarthritis of left knee: (6) Primary osteoarthritis of left hip: (7) History of stroke: (8) Poor short term memory: (9) Unsteady gait: (10) Lymphedema: (11) Acute exacerbation of CHF (congestive heart failure): (12) Acute respiratory failure with hypoxia and hypercapnia: (13) Pleural effusion: Plan Acute diastolic CHF exacerbation Echo showing preserved action fraction Continue diuresis Potassium to be replenished Acute hypoxic hypercapnic respiratory failure secondary to CHF exacerbation Improved with AVAPS pH is compensated, Patient may need evaluation for BiPAP approval at the group home Aspiration: Will request speech therapy however I do not appreciate any focal deficits A-fib with slow ventricular sponsor Holding Eliquis in anticipation of thoracentesis Stopped Coreg Junctional rhythm versus A-fib slow response Hold AV leatha blocking agent EKG without infarctive or ischemic changes Troponin without significant delta Skin excoriation lymphedema Stage II sacral ulcer Patient will need wound care, frequent change in position Continue compression wraps Gradual decline as per the family Patient has had multiple falls at home, arthritis of hip Previous history of stroke Has not been able to use a walker and now depending on nursing staff at the group home Gavin catheter placed As per the family couple of weeks ago she was able to use walker to some extent, she was able to communicate with the family, able to eat on her own At this point we are trying to reverse reversible causes such as hypercapnia with BiPAP, thoracentesis for pleural effusion,. Bacteriuria, abnormal UA: Afebrile, continue ceftriaxone, if urine culture negative she may not need any antibiotics long-term Hypokalemia: IV potassium administered DNR/DNI in case of further worsening family might opt for palliative care DVT prophylaxis: Will use Lovenox therapeutic regimen 1 dose right now and then hold in anticipation of thoracentesis on Saturday Will resume anticoagulating agent in the form of Eliquis or therapeutic Lovenox 4 hours after thoracentesis Attestations Medical Necessity Statement*: Continue medical management Diagnoses Pulmonary hypertension I27.20 Nonrheumatic aortic valve stenosis I35.0 Cardiac valve disease etiology: nonrheumatic Chronic atrial fibrillation I48.20 Atrial fibrillation type: unspecified chronic IVCD (intraventricular conduction defect) I45.4 Primary osteoarthritis of left knee M17.12 Primary osteoarthritis of left hip M16.12 History of stroke Z86.73 Poor short term memory R41.3 Unsteady gait R26.81 Lymphedema I89.0 Acute exacerbation of CHF (congestive heart failure) I50.9 Acute respiratory failure with hypoxia and hypercapnia J96.01; J96.02 Pleural effusion J90
[2024-07-06 07:31] LABS: Glucose Point of Care 73 mg/dL (70-110)
--- NOTE | 2024-07-06 07:37 | PC.NURSE ---
Fecal occult Patient noted to have a tarry bowel movement; Dr. Zuniga notified and order received for a fecal occult blood stool.
[2024-07-06] MEDS: pantoprazole 40 mg SDV IVP ×2 (08:19→17:36)
[2024-07-06] MEDS: sennosides-docusate Tablet 1 TAB PO (08:19)
--- NOTE | 2024-07-06 09:48 | PC.NURSE ---
Thoracentesis was planned for this morning. Daughters of the patient were contacted to get permission to do the thoracentesis because patient wanted daughters to be the medical decision makers. Daughters Mirella and Ely were both contacted and both said that they did not want the patient to have the thoracentesis. Doctor Regina was contacted and informed about the daughters decision.
[2024-07-06 11:52] LABS: ABG PH Result 7.37 (7.35-7.45); Alveolar-Arterial Oxygen Gradi 1.4 mmHg (5-10); Arterial Blood Gas Hematocrit 41.3 % (37-47); Blood Gas Allen Test Pos; Blood Gas Operator Identificat BD; Blood Gas Sample Site Brachial, right; Blood Gas Sample Type Arterial; Carboxyhemoglobin 0.8 %THgb (0.4-20.1); HCO3 ABG 44.1 mmol/L (22-26); HGB O2 Sat 97.5 % (95-100); Ionized Calcium Level - ABG 1.2 mmol/L (1.1-1.4); Methemoglobin 1.2 % (0.4-1.5); Oxygen Device NC; Oxygen Saturation ABG > 99.1; PO2 FiO2 Ratio Arterial Blood 430; Potassium Level - ABG 3.4 mmol/L (3.5-5.0); Total Hemoglobin 13.5 g/dL (12-16)
[2024-07-06 11:53] LABS: ABG PCO2 76.6 mmHg (35-45)
--- NOTE | 2024-07-06 13:10 | PM.MISC ---
Miscellaneous Note Note: Patient's daughter present at bedside. She refused thoracentesis today because she states her mom does not wanted. Urine output overnight has been decent. She states that she is waiting for her other sister to be here and then they may decide to go ahead with hospice services. Patient is more awake compared to before this morning however is now sleeping.
--- NOTE | 2024-07-06 13:57 | PC.SOCIAL ---
IMM Updated Updated pt & family on IMM. No questions voiced. Provided pt a copy. Initialed, dated, & timed a copy & placed in chart.
--- NOTE | 2024-07-06 14:30 | PC.OT ---
OT EVALUATION ORDERS RECEIVED. SPOKE WITH DAUGHTERS WHO REPORT THAT THE PATIENT IS SLEEPING AND THEY DO NOT WISH FOR HER TO BE DISTURBED AT THIS TIME. ALSO, PER PATIENT FAMILY AND CHART,PATIENT WILL BE TRANSITIONED TO HOSPICE AT SNF.
[2024-07-06 16:39] LABS: Glucose Point of Care 78 mg/dL (70-110)
[2024-07-06 16:39] LABS: Glucose Point of Care 112 mg/dL (70-110)
[2024-07-06] MEDS: apixaban 5 mg Tablet PO (17:36)
--- NOTE | 2024-07-06 20:00 | PC.NURSE ---
Mosnter Contacted Dr. Heller regarding patient's evening dose of Eliquis 5 mg. Morning dose was not given until 1736 on 07/06. Patient had another dose due at 2100 on 07/[address] Heller gave instructions to hold the evening dose.
[2024-07-06] MEDS: FUROsemide 10 mg/mL SDV 10mL 60 MG IVP (22:32)
[2024-07-06 23:30] LABS: Glucose Point of Care 91 mg/dL (70-110)
[2024-07-06 23:30] LABS: Glucose Point of Care 98 mg/dL (70-110)
[2024-07-07] VITALS (63 sets, daily range): BP systolic 109–166; BP diastolic 43–90; PULSE 39–63; RESP 11–29; TEMP 36.6–36.9; O2SAT 82–100
[2024-07-07] MEDS: cefTRIAXone 1,000 mg SDV 1000 MG IVP (01:32)
[2024-07-07 02:54] LABS: Glucose Point of Care 76 mg/dL (70-110)
[2024-07-07 03:47] LABS: Glucose Point of Care 109 mg/dL (70-110)
[2024-07-07 04:27] LABS: Basophils % 0.1 %; Eosinophils # 0.1 10^3/uL (0.0-0.8); Eosinophils % 0.9 %; Lymphocytes # 1.4 10^3/uL (0.8-4.8); Lymphocytes % 12.7 %; Mean Corpuscular HGB Conc 30.3 g/dL (30-55); Mean Corpuscular Hemoglobin 29.5 pg (27-33); Mean Corpuscular Volume 97.6 fl (85-98); Mean Platelet Volume 10.5 fL (7.4-10.4); Monocytes # 1.2 10^3/uL (0.2-0.9); Monocytes % 10.5 %; Neutrophils # 8.45 10^3/uL (1.8-7.7); Neutrophils % 75.4 %; Nucleated Red Blood Cells % 0 %; Platelet Count 152 10^3/cmm (157-399); Red Cell Distribution Width 15.9 % (12.1-15.1); White Blood Count 11.19 10^3/uL (3.29-11.43)
[2024-07-07 04:53] LABS: Anion Gap 6.1 (5-19); Blood Urea Nitrogen 27 mg/dL (8-23); Calcium 8.5 mg/dL (8.5-10.5); Chloride 95 mmol/L (98-107); Glucose 103 mg/dL (65-115); Osmolality Calculated 297 mOsm/kg (285-295); Potassium 3.1 mmol/L (3.5-5.1); Sodium 141 mmol/L (136-145)
[2024-07-07 05:05] LABS: Carbon Dioxide 43 mmol/L (22-29)
[2024-07-07 06:11] LABS: Glucose Point of Care 89 mg/dL (70-110)
[2024-07-07 07:49] LABS: Glucose Point of Care 89 mg/dL (70-110)
[2024-07-07] MEDS: potassium chloride oral liq 20 mEq/15 mL UDC 40 MEQ PO (09:41)
[2024-07-07] MEDS: pantoprazole 40 mg SDV IVP ×2 (09:41→18:14)
[2024-07-07] MEDS: apixaban 5 mg Tablet PO (09:41)
[2024-07-07] MEDS: sennosides-docusate Tablet 1 TAB PO (09:41)
--- NOTE | 2024-07-07 10:41 | PC.NURSE ---
upon morning assessment, patient was found to have a large hematoma to the right hand with diffused redness up to the elbow. Skin on the right hand is tight and shiny. Patient has intact pulses and cap refill less than 3 seconds distal to the hematoma. Patient is still able to make a fist and skin is still soft on other areas of the hand. Nurse alerted Dr Tapia and sent picture via [employer]. Regina requested limb be elevated with warm compress applied. SHe will consult Dr gongora.
--- NOTE | 2024-07-07 11:19 | P.DS_ITS ---
Discharge Providers Date of Admission: 07/04/24 23:50 Date of Discharge: July 07, 2024 Attending Provider at Admission: Tona Zuniga MD Attending Provider at Discharge: Nichole Tapia MD Primary Care Provider: Jessica Esteves MD Diagnoses at Discharge Discharge Diagnosis (1) Pulmonary hypertension: Status: Chronic (2) Aortic valve stenosis: Status: Acute Qualifiers: Cardiac valve disease etiology: nonrheumatic Qualified Code(s): I35.0 - Nonrheumatic aortic (valve) stenosis (3) Atrial fibrillation: Status: Chronic Qualifiers: Atrial fibrillation type: unspecified chronic Qualified Code(s): I48.20 - Chronic atrial fibrillation, unspecified (4) IVCD (intraventricular conduction defect): Status: Acute (5) Primary osteoarthritis of left knee: Status: Acute (6) Primary osteoarthritis of left hip: Status: Acute (7) History of stroke: Status: Chronic Permanent problem details: posterior R parietal infarct (8) Poor short term memory: Status: Chronic (9) Unsteady gait: Status: Chronic (10) Lymphedema: Status: Chronic (11) Acute exacerbation of CHF (congestive heart failure): Status: Acute (12) Acute respiratory failure with hypoxia and hypercapnia: Status: Acute (13) Pleural effusion: Status: Acute Reason for Visit Reason for Visit: weakness Hospital Course Hospital Course 83-year-old lady who was dealing with recurrent falls chronic lymphedema for a while A-fib on anticoagulation was sent to skilled nursing for long-term care about a week ago she was brought to the hospital for increasing confusion over the last week and was not really eating much. She was found to be in hypercapnic respiratory failure was placed on BiPAP after which hypercapnia did improve she was alert awake however extremely sick overall. She does have bilateral pleural effusions which are quite large. Eliquis was held in anticipation of thoracen tesis. Extensive goals of care discussion done with daughter is at bedside at admission and throughout hospitalization. Patient's heart rate was also low 30s to 40s. Her carvedilol was stopped and several other medications were adjusted. Family however elected to send patient to skilled nursing with hospice and declined to have the thoracentesis at this time. Also during a blood draw from her right hand there was an infiltration due to which she developed hand swelling and some necrotic tissue. General surgery was consulted. Patient will need local wound care once skin sloughs off. Warm compresses are recommended at this time. No other surgical intervention needed. Patient is on 5 L nasal cannula and will be sent to nursing facility in stable condition at this time with hospice services in accordance with the family's and patient's wishes. Physical Exam Narrative: Patient is answering my questions appropriately 1L/min Signs of fluid overload Skin excoriation Lymphedema No active focal deficit Patient appears anxious No active chest pain Variable S1-S2 heart rate fluctuates between 40-60 Urinary Catheter Management: Gavin: Cath Placed During This Visit: yes Reason for Continuing Indwelling Catheter: Accurate Measurement of Urinary Output in Critically Ill Patients Urinary Catheter Date of Insertion: 07/04/24 Urinary Catheter Time of Insertion: 23:30 Discharge Data Studies Completed and Pending Completed Studies During Hospitalization Category Date Time Status CT chest w con* [id number] Stat Cat Scan 07/04/24 22:[address] head wo con* [id number] Stat Cat Scan 07/04/24 22:19 Completed XR chest 1V portable [id number] Stat Exams 07/04/24 22:20 Completed CV. echo complete* [id number] Routine Ultrasound 07/05/24 00:48 Completed Pending at discharge Category Date Time Status Basic Metabolic Panel AM LABS Lab 07/08/24 04:00 Ordered Blood Culture Stat Lab 07/04/24 22:38 Results Complete Blood Count w/Auto AM LABS Lab 07/08/24 04:00 Ordered Radiology Impressions Head CT 07/04/24 22:19 IMPRESSION: 1. No acute intracranial abnormality. 2. Stable moderate-sized chronic infarct in the right temporoparietal area with volume loss. Chest X-Ray 07/04/24 22:20 IMPRESSION: 1. Moderate bilateral pleural effusions, [id number]-left. Cannot exclude a superimposed infectious process. 2. Bilateral lower lobe compressive atelectasis, [id number]-left. Chest CT 07/04/24 22:47 IMPRESSION: 1. Large right and moderate left-sided pleural effusions. 2. Hypodense right thyroid lobe nodule. Recommend dedicated thyroid ultrasound for further evaluation if not previously performed. 3. Enlargement of the pulmonary trunk likely secondary to pulmonary hypertension. COMMENTS: Consistent with the [employer]'s Incidental Findings Committee white paper (J Am Anat Radiol 2015): In patients aged 35 years and older with an incidental thyroid nodule equal to or greater than 1.[address], MRI or extrathyroidal US, further evaluation with dedicated thyroid US is recommended for patients with normal life expectancy and without comorbidities. For smaller nodules without suspicious features, no further evaluation or follow up is recommended. Laboratory Results WBC 11.19 10^3/uL (3.29-11.43) 07/07/24 03:48 RBC 4.10 10^6/uL (3.85-5.65) 07/07/24 03:48 Hgb 12.10 g/dL (11.27-16.99) 07/07/24 03:48 Hct 40.0 % (36-47) 07/07/24 03:48 MCV 97.6 fl (85-98) 07/07/24 03:48 MCH 29.5 pg (27-33) 07/07/24 03:48 MCHC 30.3 g/dL (30-55) 07/07/24 03:48 RDW 15.9 % (12.1-15.1) H 07/07/24 03:48 Plt Count 152 10^3/cmm (157-399) L 07/07/24 03:48 MPV 10.5 fL (7.4-10.4) H 07/07/24 03:48 Neut % (Auto) 75.4 % 07/07/24 03:48 Lymph % (Auto) 12.7 % 07/07/24 03:48 [place] % (Auto) 10.5 % 07/07/24 03:48 Eos % (Auto) 0.9 % 07/07/24 03:48 Baso % (Auto) 0.1 % 07/07/24 03:48 Neut # (Auto) 8.45 10^3/uL (1.8-7.7) H 07/07/24 03:48 Lymph # (Auto) 1.4 10^3/uL (0.8-4.8) 07/07/24 03:48 [place] # (Auto) 1.2 10^3/uL (0.2-0.9) H 07/07/24 03:48 Eos # (Auto) 0.1 10^3/uL (0.0-0.8) 07/07/24 03:48 Baso # (Auto) 0.0 10^3/uL (0.0-0.1) 07/07/24 03:48 Nucleated RBC % (auto) 0 % 07/07/24 03:48 Nucleated RBCs # 0.0 /100WBC 07/07/24 03:48 PT 19.60 SECONDS (12.1-14.9) H 07/06/24 04:46 INR 1.55 (0.8-1.2) H 07/06/24 04:46 Specimen Type Arterial 07/06/24 11:40 Sample Site Brachial, right 07/06/24 11:40 ABG pH 7.37 (7.35-7.45) 07/06/24 11:40 ABG pCO2 76.6 mmHg (35-45) H* 07/06/24 11:40 ABG pO2 155.0 mmHg (80.0-100.0) H 07/06/24 11:40 ABG PO2/FiO2 Ratio 430 07/06/24 11:40 ABG HCO3 44.1 mmol/L (22-26) H 07/06/24 11:40 ABG O2 Saturation > 99.1 07/06/24 11:40 ABG Base Excess 15.0 mmol/L (-2.0-2.0) H 07/06/24 11:40 Fer Test Pos 07/06/24 11:40 VBG pH 7.46 (7.32-7.42) H 07/06/24 04:55 VBG pCO2 54.8 mmHg (41-51) H 07/06/24 04:55 VBG pO2 76.6 mmHg (25-40) H 07/06/24 04:55 VBG HCO3 38.8 mmol/L (24-28) H 07/06/24 04:55 VBG Base Excess 12.5 mmol/L (-3.0-3.0) H 07/06/24 04:55 VBG Hematocrit 43.8 % (37-47) 07/06/24 04:55 A-a O2 Gradient 1.4 mmHg (5-10) L 07/06/24 11:40 Hematocrit 41.3 % (37-47) 07/06/24 11:40 Hgb O2 Saturation 97.5 % (95-100) 07/06/24 11:40 Carboxyhemoglobin 0.8 %THgb (0.4-20.1) 07/06/24 11:40 Methemoglobin 1.2 % (0.4-1.5) 07/06/24 11:40 Total Hemoglobin 13.5 g/dL (12-16) 07/06/24 11:40 Sodium 146.0 mmol/L (131-143) H 07/06/24 11:40 Potassium 3.4 mmol/L (3.5-5.0) L 07/06/24 11:40 Glucose 81.0 mg/dL (70-115) 07/06/24 11:40 Ionized Calcium 1.2 mmol/L (1.1-1.4) 07/06/24 11:40 O2 Delivery Device Nc 07/06/24 11:40 O2 Liters/Min 4.0 % 07/06/24 11:40 FiO2 36.0 % 07/06/24 11:40 Tidal Volume 0.55 07/06/24 04:55 PEEP 6.0 cmH20 07/06/24 04:55 Aviation Support Equipment Repairer ID Bd 07/06/24 11:40 Sodium 141 mmol/L (136-145) 07/07/24 03:48 Potassium 3.1 mmol/L (3.5-5.1) L 07/07/24 03:48 Chloride 95 mmol/L (98-107) L 07/07/24 03:48 Carbon Dioxide 43 mmol/L (22-29) H* 07/07/24 03:48 Anion Gap 6.1 (5-19) 07/07/24 03:48 BUN 27 mg/dL (8-23) H 07/07/24 03:48 Creatinine 0.9 mg/dL (0.5-0.9) 07/07/24 03:48 GFR Calculation Not Reportable 07/07/24 03:48 Glucose 103 mg/dL (65-115) 07/07/24 03:48 POC Glucose 89 mg/dL (70-110) 07/07/24 07:30 Calculated Osmolality 297 mOsm/kg (285-295) H 07/07/24 03:48 Lactic Acid 1.1 mmol/L (0.5-2.2) 07/04/24 22:36 Calcium 8.5 mg/dL (8.5-10.5) 07/07/24 03:48 Phosphorus 2.4 mg/dL (2.5-4.5) L 07/05/24 02:54 Magnesium 2.2 mg/dL (1.7-2.3) 07/05/24 02:54 Total Bilirubin 0.8 mg/dL (0.15-1.2) 07/04/24 22:36 AST 12 U/L (0-32) 07/04/24 22:36 ALT 9 U/L (0-33) 07/04/24 22:36 Alkaline Phosphatase 103 U/L (35-105) 07/04/24 22:36 Ammonia 50 umol/L (11-51) 07/04/24 22:36 Creatine Kinase 15 U/L (26-192) L 07/04/24 22:36 Troponin T Baseline 21 ng/L (0-10) H 07/04/24 22:36 Troponin T 120 Minute 21.06 ng/L (0-10) H 07/05/24 00:40 Delta Troponin T 0.06 ABS# (0-10) 07/05/24 00:40 Troponin T Hi Sens 6Hr 23.28 ng/L (0-10) H 07/05/24 02:54 Troponin T Hi Sens 6Hr Delta 2.28 ng/L (0-12) 07/05/24 02:54 C-Reactive Protein 35.6 mg/L (0.0-4.9) H 07/06/24 04:46 NT-Pro-B Natriuret Pep 55071 pg/mL (0-450) H 07/04/24 22:36 Total Protein 5.7 g/dL (6.6-8.7) L 07/04/24 22:36 Albumin 2.7 g/dL (3.5-5.2) L 07/04/24 22:36 Globulin 3.0 g/dL (1.3-4.6) 07/04/24 22:36 Procalcitonin 0.11 ng/mL (0-0.5) 07/05/24 02:54 TSH 2.49 uIU/mL (0.27-4.20) 07/04/24 22:36 Urine Color Dark yellow (Yellow) A 07/04/24 23:31 Urine Appearance Clear (CLEAR) 07/04/24 23:31 Urine pH 5.5 (5-7) 07/04/24 23:31 Ur Specific [place] 1.020 (1.005-1.030) 07/04/24 23: Urine Protein Trace (Negative) A 07/04/24: Urine Glucose (UA) Negative (Normal) 07/04/24: Urine Ketones Negative (Negative) 07/04/24: Urine Blood Non-haemolysed trace (Negative) 07/04/24: Urine Nitrate Negative (Negative) 07/04/24: Urine Bilirubin Negative (Negative) 07/04/24: Urine Urobilinogen 1.0 mg/dL (Negative) 07/04/24: Ur Leukocyte Esterase Negative (Negative) 07/04/24: Urine RBC 3-5 /hpf (0-2) 07/04/24 Urine WBC 0-5 /hpf (0-5) 07/04/24: Ur Squamous Epith Cells 10-15 /hpf (0-5) H 07/04/24: Amorphous Sediment Not Reportable 07/04/24 Urine Bacteria 3+ /hpf (NONE) H 07/04/24: Hyaline Casts 7.42 /lpf 07/04/24 23: Adenovirus (PCR) Not detected (NOT DETECT) 07/04/24 21:44 C. pneumoniae DNA (PCR) Not detected (NOT DETECT) 07/04/24 21: Coronavirus 229E (PCR) Not detected (NOT DETECT) 07/04/24 21:44 Human Metapneumovir PCR Not detected (NOT DETECT) 07/04/24 21:44 Influenza A (H1) PCR Not detected (NOT DETECT) 07/04/24 21:44 Influ A (H1/09) PCR Not detected (NOT DETECT) 07/04/24 21:44 Influenza A (H3) PCR Not detected (NOT DETECT) 07/04/24 21:44 Influenza Type A (PCR) Not detected (NOT DETECT) 07/04/24 21: Influenza Type B (PCR) Not detected (NOT DETECT) 07/04/24 21:44 M. pneumoniae (PCR) Not detected (NOT DETECT) 07/04/24 21:44 Parainfluenza 1 (PCR) Not detected (NOT DETECT) 07/04/24 21:44 Parainfluenza 2 (PCR) Not detected (NOT DETECT) 07/04/24 21:44 Parainfluenza 3 (PCR) Not detected (NOT DETECT) 07/04/24 21:44 Parainfluenza 4 (PCR) Not detected (NOT DETECT) 07/04/24 21:44 RSV Type A (PCR) Not detected (NOT DETECT) 07/04/24 21:44 RSV Type B (PCR) Not detected (NOT DETECT) 07/04/24 21:44 Entero/Rhino (PCR) Not detected (NOT DETECT) 07/04/24 21:44 SARS-CoV-2 (PCR) Not detected (NOT DETECT) 07/04/24 21:44 Vitals Last Vital Signs Temp 98.5 F 07/07/24 06:00 Pulse 45 L 07/07/24 10:00 Resp 20 H 07/07/24 10:00 BP 132/56 07/07/24 06:00 Pulse Ox 100 07/07/24 10:00 O2 Del Method Nasal Cannula 07/07/24 10:00 O2 Flow Rate 2 07/07/24 10:00 FiO2 35 07/06/24 03:12 Discharge Plan Discharge Patient Disposition: Hospice - Medical Facility Condition: Fair Prescriptions: New sennosides-docusate sodium [Stool Softener-Laxative] 8.6-50 mg Tablet 1 tab PO DAILY Qty: 30 0RF furosemide [Lasix] 40 mg tablet 40 mg PO DAILY Qty: 30 0RF potassium chloride 10 mEq capsule, extended release 20 meq PO DAILY Qty: 30 0RF amlodipine 5 mg tablet 5 mg PO DAILY Qty: 30 0RF Continued acetaminophen 500 mg capsule 1,000 mg PO Q6H PRN (Reason: Pain) multivitamin Tablet 1 tab PO DAILY Eliquis 5 mg tablet 5 mg PO BID miconazole nitrate 2 % Powder 1 applic TOPICAL BID magnesium hydroxide [Milk of Magnesia] 400 mg/5 mL Suspension 30 ml PO DAILY PRN (Reason: Constipation) bisacodyl [Dulcolax (bisacodyl)] 10 mg Suppository 10 mg NM DAILY PRN (Reason: constipation ) escitalopram oxalate 5 mg tablet 5 mg PO DAILY Discontinued Eliquis 5 mg tablet 5 mg PO BID Qty: 180 2RF carvedilol 25 mg tablet 25 mg PO BID indapamide 2.5 mg tablet 2.5 mg PO DAILY meloxicam 7.5 mg tablet 7.5 mg PO DAILY PRN (Reason: Pain) aliskiren [Tekturna] 300 mg tablet 300 mg PO DAILY Discharge Orders: Discharge Order (Routine); Ordered 07/07/24 Ordered By: Nichole Tapia Referrals: [facility] [Outside] [facility] [Outside] Jessica Esteves MD [Primary Care Provider] - 07/15/24 12:00 pm [facility], [Staff Physician] - 07/14/24 (Tonya Mederos FINISH MACHINE TENDER with [facility] will see Mrs Booth starting saturday07-14-24) Discharge Diet: Cardiac and Diabetic Discharge Activity: Resume usual activity and As per PT/OT instructions Patient Instructions: Furosemide (By mouth), Potassium Chloride (By mouth), Laxative, Stool Softeners (By mouth), Amlodipine (By mouth), Heart Failure (DC), Aortic Stenosis (DC), Heart Healthy Diet (DC), Pleural Effusion (DC), Meal Planning with Diabetes Exchanges (DC), Hypoxia (GEN), Acute Respiratory Failure (GEN), Opioid Safety Activity Restrictions/Additional Instructions: Dysphagia level 4 diet, Extremely thick/pureed Moderate thick liquidized liquid. Discharge Attestations Time Spent in Discharge Care*: greater than 30 min Quality Metrics Clinical Quality Measures [ No reported AMI, CVA or VTE this stay] Coding Level of Care Code 97666 Total time (in minutes) for Discharge: 30 Diagnoses Pulmonary hypertension I27.20 Nonrheumatic aortic valve stenosis I35.0 Cardiac valve disease etiology: nonrheumatic Chronic atrial fibrillation I48.20 Atrial fibrillation type: unspecified chronic IVCD (intraventricular conduction defect) I45.4 Primary osteoarthritis of left knee M17.12 Primary osteoarthritis of left hip M16.12 History of stroke Z86.73 Poor short term memory R41.3 Unsteady gait R26.81 Lymphedema I89.0 Acute exacerbation of CHF (congestive heart failure) I50.9 Acute respiratory failure with hypoxia and hypercapnia J96.01; J96.02 Pleural effusion J90
--- NOTE | 2024-07-07 12:12 | P.CONIM_ITS ---
Providers/Reason For Consult 2 Consulting Physician/Specialty*: General Surgery Reason for Consult*: Swelling of the right hand Attending Physician: Nichole Tapia MD Primary Care Provider: Jessica Esteves MD History of Present Illness History of Present Illness Yesica Booth is a 83 year old female With multiple medical comorbidities who was expecting discharge to hospice today. I was consulted because an IV infiltrated on her right hand causing significant swelling and superficial skin changes. According to the patient she does have pain on the right hand and significant swelling is mildly improved over the last couple of hours. Review of Systems 2 General: Reports: 10 or more systems reviewed and unremarkable except in HPI and below Medications/Allergies Home Medications Medication Instructions Recorded Confirmed Last Taken Type acetaminophen 500 mg capsule 1,000 mg PO Q6H PRN Pain 12/05/20 07/05/24 Unknown History multivitamin 1 tab PO DAILY 12/05/20 07/05/24 07/04/24 08:10 History apixaban 5 mg tablet (Eliquis) 5 mg PO BID #180 tabs 04/09/24 07/05/24 06/23/24 Rx aliskiren 300 mg tablet (Tekturna) 300 mg PO DAILY 06/24/24 07/05/24 06/23/24 History carvedilol 25 mg tablet 25 mg PO BID 06/24/24 07/05/24 07/04/24 17:00 History escitalopram oxalate 5 mg tablet 5 mg PO DAILY 06/24/24 07/05/24 07/04/24 08:00 History indapamide 2.5 mg tablet 2.5 mg PO DAILY 06/24/24 07/05/24 07/04/24 08:00 History meloxicam 7.5 mg tablet 7.5 mg PO DAILY PRN Pain 06/24/24 07/05/24 Unknown History apixaban 5 mg tablet (Eliquis) 5 mg PO BID 07/05/24 07/05/24 07/04/24 17:00 History bisacodyl 10 mg rectal suppository 10 mg RI DAILY PRN constipation 07/05/24 07/05/24 Unknown History (Dulcolax (bisacodyl)) magnesium hydroxide 400 mg/5 mL 30 ml PO DAILY PRN Constipation 07/05/24 07/05/24 Unknown History oral suspension (Milk of Magnesia) miconazole nitrate 2 % topical 1 applic topical BID 07/05/24 07/05/24 07/04/24 16:00 History powder Allergies Allergy/AdvReac Type Severity Reaction Status Date / Time No Known Allergies Allergy Verified 04/20/24 14:56 Current Medications Generic Name Dose Route Start Last Admin Trade Name Freq PRN Reason Stop Dose Admin Apixaban 5 mg 07/06/24 18:00 07/07/24 09:41 Apixaban 5 Mg Tablet PO 5 mg BID@0900,2100 BLANCA Administration Atropine Sulfate 0.5 mg 07/05/24 17:57 07/06/24 01:09 Atropine 0.1 Mg/Ml Syr 10 Ml IVP 0.5 mg PRN PRN Administration HR < 35 Ceftriaxone Sodium 1,000 mg 07/05/24 01:00 07/07/24 01:32 Ceftriaxone 1,000 Mg Sdv IVP 1,000 mg Q24H BLANCA Administration Protocol Furosemide 60 mg 07/05/24 22:45 07/06/24 22:32 Furosemide 10 Mg/Ml Sdv 10ml IVP 60 mg Q24H BLANCA Administration Dextrose 125 mls @ 750 mls/hr 07/05/24 21:41 07/05/24 22:50 D10w IV Infused PRN PRN Infusion HYPOGLYCEMIA Lanolin 1 applic 07/05/24 04:56 07/05/24 20:17 Lanolin Oint 7 Gm TOPICAL 1 applic PRN PRN Administration DRYNESS Pantoprazole Sodium 40 mg 07/05/24 09:00 07/07/24 09:41 Pantoprazole 40 Mg Sdv IVP 40 mg BID BLANCA Administration Senna/Docusate Sodium 1 tab 07/05/24 09:00 07/07/24 09:41 Sennosides-Docusate Tablet PO 1 tab DAILY BLANCA Administration PFSH Acute 2 PFSH: Medical History Aortic stenosis, mild Unsteady gait BPPV (benign paroxysmal positional vertigo) Pulmonary hypertension History of stroke posterior R parietal infarct Osteopenia Left bundle branch block HTN (hypertension) Dyslipidemia Atrial fibrillation Surgical History History of hysterectomy Family History Mother Congestive heart failure (CHF) Diabetes Father Stroke Family/Other Diabetes Social History Smoking and tobacco/nicotine status: never used tobacco/nicotine Alcohol intake: never Substance/Drug Use: never Household members: other Details: lives with daughter Vitals/I&O/Wt Last Vital Signs Temp 98 F 07/07/24 09:00 Pulse 56 L 07/07/24 11:45 Resp 18 07/07/24 11:45 BP 158/61 07/07/24 10:00 Pulse Ox 89 L 07/07/24 11:45 O2 Del Method Nasal Cannula 07/07/24 10:00 O2 Flow Rate 2 07/07/24 10:00 FiO2 35 07/06/24 03:12 07/06/24 07/07/24 07/07/24 22:59 06:59 14:59 Intake Total 680 / 680 300 / 980 400 / 400 Output Total 1300 / 2100 2150 / 4250 250 / 250 Balance -620 / -1420 -1850 / -3270 150 / 150 Weight last 48 hrs Weight 229 lb Physical Exam 2 Extremity: NARRATIVE EXTREMITY EXAM: The right hand is swollen especially in the dorsum of the hand. There is ecchymosis involving an area of about 10 x 10 cm in the dorsum of the hand, there is Good distal pulses as well as capillary refill. Urinary Catheter Management: Gavin: Cath Placed During This Visit: yes Reason for Continuing Indwelling Catheter: Accurate Measurement of Urinary Output in Critically Ill Patients Urinary Catheter Date of Insertion: 07/04/24 Urinary Catheter Time of Insertion: 23:30 Data 07/07/24 03:48 07/07/24 03:48 Micro: Microbiology 07/05/24 02:56 Urine Culture - Final Urine Catheterized 07/06/24 05:45 Occult Blood (FIT) - Final Stool Routine Collection A&P Assessment and plan (1) IV infiltrate: Plan After complete history, physical examination and review of all available clinical data the following is my assessment.This patient hasLocalized swelling on the right hand due to IV infiltration. There is superficial ecchymosis at the level of the skin, due to significant swelling there is increased likelihood of skin necrosis at that level. At the moment there is no need for surgical intervention, we will need to continue with elevation of the right upper extremity, warm compresses and allow the skin to completely demarcate, once it demarcates if there is any areas of necrosis this can be debrided by wound care. At the moment there is no threat to distal vascularity in the hand and swelling is mostly localized to the dorsum of the hand where no significant vascular or nerve structures are localized. Coding Level of Care Code 64824 Diagnoses IV infiltrate T80.1XXA
[2024-07-07] MEDS: acetaminophen 500 mg Tablet PO (14:53)
[2024-07-07 15:02] LABS: SARS Covid-2 Antigen Negative (Negative)
--- NOTE | 2024-07-07 15:14 | PC.NURSE ---
REport called to kapil at [facility]. Discharge packet faxed to [facility]. Covid results are negative, faxed to [facility]. Nurse called [facility] ems, spoke to Joshua and arranged ground. He was unable to provide an eta, but they are aware of our request.
--- NOTE | 2024-07-07 18:07 | PC.NURSE ---
Shift SUmmary: Patient is ready to transfer to [facility] with [facility]. report called. [facility] called. Currently waiting on [facility] ambulance. Unknown eta. [facility] would appreciate a phone call when patient leaves facility.
--- NOTE | 2024-07-07 19:25 | PC.NURSE ---
Transfer Patient transferred to [facility] by EMS at 1920. Patient's family members bedside and all patient belongings transported with patient.
--- NOTE | 2024-07-07 20:53 | PC.NURSE ---
Patient did not have any belongings upon admission.
== END 2024-07-07 19:20 | disposition hospice, inpatient (51) | DRG 291 ==
LOC: ER 22:56 → ICU 07-05 00:06
PROVIDERS: Student in an Organized Health Care Education/Training Program; Admitting Provider Internal Medicine; Emergency Provider Emergency Medicine; PCP Family Medicine; Visit Provider Internal Medicine
DX: I11.0 Hypertensive heart disease with heart failure (principal); I50.33 Acute on chronic diastolic (congestive) heart failure; J96.02 Acute respiratory failure with hypercapnia; J96.01 Acute respiratory failure with hypoxia; I45.89 Other specified conduction disorders; N39.0 Urinary tract infection, site not specified; G93.49 Other encephalopathy; T80.1XXA Vascular complications following infusion, transfusion and therapeutic injection, initial encounter; I27.20 Pulmonary hypertension, unspecified; I35.0 Nonrheumatic aortic (valve) stenosis; I48.91 Unspecified atrial fibrillation; M17.12 Unilateral primary osteoarthritis, left knee; M16.12 Unilateral primary osteoarthritis, left hip; R26.89 Other abnormalities of gait and mobility; Z66 Do not resuscitate; L98.499 Non-pressure chronic ulcer of skin of other sites with unspecified severity; E87.6 Hypokalemia; E78.5 Hyperlipidemia, unspecified; I44.7 Left bundle-branch block, unspecified; R00.1 Bradycardia, unspecified; T44.7X5A Adverse effect of beta-adrenoreceptor antagonists, initial encounter; E16.2 Hypoglycemia, unspecified; M79.89 Other specified soft tissue disorders; Y84.8 Other medical procedures as the cause of abnormal reaction of the patient, or of later complication, without mention of misadventure at the time of the procedure; Y71.8 Miscellaneous cardiovascular devices associated with adverse incidents, not elsewhere classified; Y92.239 Unspecified place in hospital as the place of occurrence of the external cause; Z86.73 Personal history of transient ischemic attack (TIA), and cerebral infarction without residual deficits; Z79.02 Long term (current) use of antithrombotics/antiplatelets; Z79.01 Long term (current) use of anticoagulants
CPT/HCPCS: 36415; 36416; 36600; 51702; 70450; 71045; 71260; 80048; 80051; 80053; 81001; 82140; 82274; 82330; 82550; 82803; 82805; 82962; 83605; 83735; 83880; 84100; 84145; 84443; 84484; 85025; 85610; 86140; 87040; 87086; 87426; 87486; 87581; 87633; 92523; 92610; 93005; 93306; 94640; 94660; 96372; 96374; 96376; 97162; 99285; J0461; J0696; J1610; J1650; J1940; J2470; J3480; J7799